=== PATIENT | female | born 1980 | race Hispanic/Latino ===

== ENCOUNTER → 2018-03-29 10:45 | Outpatient (CLI) | payer MEDICARE, SELFPAY ==
--- NOTE | 2018-04-12 11:07 | P.HOLT.S_ITS ---
[facility] Report Referral & Results Date Patient Seen: 03/29/18 Requesting provider: Rylee Atkins Indication: Palpitations Duration of monitoring (days): 3 Diary information: There were 4 diary entries that were associated with sinus rhythm, and 8 triggered events also associated with sinus rhythm Data: Minimum heart rate identified was 65 beats per minute at 06:41 on March 31, 2018 Maximum heart rate identified was 161 beats per minute at 13:55 on March 30, 2018 Less than 1% of identified beats were either PACs or PVCs No other dysrhythmia identified Impression: Normal Holter monitor. No dysrhythmic source of symptoms of palpitations identified on this study.
== END ==
PROVIDERS: Family Provider Family Medicine; PCP Family Medicine; Visit Provider Family Medicine
DX: R00.2 Palpitations (principal)
CPT/HCPCS: 0296T; 0298T

== ENCOUNTER 2018-07-11 15:21 | Emergency (ER) | payer MEDICARE, SELFPAY ==
[2018-07-11 15:29] VITALS: BP 140/75; PULSE 88; RESP 18; TEMP 36.8; O2SAT 100; BMI 23.9
--- NOTE | 2018-07-11 15:55 | ED.NECK ---
HPI - Neck Pain/Injury General Chief Complaint: Neck Pain/Injury Stated Complaint: HEAD, NECK, JAW AND BACK PAIN Time Seen by Provider: 07/11/18 15:45 Source: patient Mode of arrival: ambulatory Limitations: no limitations History of Present Illness HPI Narrative: 37-year-old female here for evaluation of right-sided neck pain and fullness. She states that it started approximately 4 days ago. States that it started with right ear pain and a sore throat. Those have since resolved. Has not tried anything for it. Four years ago had a Arnold-Chiari malformation decompression. States she does have fullness when she turns her neck to the right. Related Data Home Medications Medication Instructions Recorded Confirmed multivitamin chewable tablet 1 tab PO DAILY 05/16/18 07/11/18 propranolol 10 mg PO TID-QID 07/11/18 07/11/18 sumatriptan succinate [Imitrex] 50 mg PO Q2HP PRN 07/11/18 07/11/18 Previous Rx's Medication Instructions Recorded ascorbic acid (vitamin C) 500 mg PO QDAY #60 tab 03/08/17 ferrous sulfate [Iron (ferrous 325 mg PO BID #60 tab 03/08/17 sulfate)] amitriptyline 20 mg PO HS #60 tab 11/21/17 tramadol 50 mg tablet 50 mg PO Q4HP PRN #60 tab 05/10/18 Allergies Allergy/AdvReac Type Severity Reaction Status Date / Time baclofen [BACLOFEN] AdvReac Mild ANXIETY Verified 07/11/18 15:29 AND SLUGGISHNESS Review of Systems Constitutional Denies fever(s) and Denies headache(s) ENT Ears, Nose, Mouth, and Throat: Denies dizziness, Denies dry mouth, Denies ear discharge, Denies headache(s), Reports neck mass, Reports neck pain, Denies nose pain, Denies tinnitus, Denies sinus pain, Denies sinus pressure, Reports sore throat and Reports throat swelling Cardiovascular Denies chest pain and Denies dyspnea Respiratory Denies cough and Denies dyspnea Gastrointestinal Gastrointestinal: Denies abdominal pain, Denies belching, Denies melena, Denies nausea and Denies vomiting Musculoskeletal Denies myalgias, Denies arthralgias and Reports neck pain Integumentary/Breasts Denies lesions and Denies rash Neurologic Denies dizziness and Denies headache(s) Allergic/Immunologic Reports throat swelling PFSH Medical History Chronic back pain (Chronic) Foot pain (Chronic) History of frequent headaches (Chronic) Migraines (Chronic) Shoulder pain (Chronic) Stroke (Chronic) Vertigo (Chronic) Abnormal Pap smear of cervix (Resolved) Painful menstrual periods (Resolved) Surgical History History of Chiari malformation (Resolved ~07/10/17) Anesthesia (Inactive) History of third molar tooth extraction Status post appendectomy Status post breast reduction (~2014) Family History Child Age: 14 Asthma Father Age: 56 Parkinsons AA (alcohol abuse) Mother Age: 57 Hepatitis B infection without delta agent without hepatic coma, unspecified chronicity Grandmother No problems noted. Social History Smoking Status: Never smoker Exam Initial Vital Signs Initial Vital Signs: Vital Signs Temperature 98.2 F 07/11/18 15:29 Pulse Rate 88 07/11/18 15:29 Respiratory Rate 18 07/11/18 15:29 Blood Pressure 140/75 H 07/11/18 15:29 Pulse Oximetry 100 07/11/18 15:29 Const General: cooperative, healthy appearing, comfortable, well developed, well groomed and No acute distress Orientation: alert, awake and oriented x3 HENMT Head: normal to inspection and normocephalic Neck Neck: no meningeal signs and trachea midline Thyroid: thyroid normal Other: Patient with fullness in the right-sided anterior cervical region that is tender to palpation. No supraclavicular tenderness. No right adnexal fullness or lymph nodes felt. Resp Effort & Inspection: normal respiratory effort Auscultation: clear to auscultation bilaterally Cardio Rate: regular rate Rhythm: regular rhythm Skin General: no rashes or lesions noted Lesions: no lesions Rashes: no rashes Neuro General: alert, awake and oriented x3 Extrem General: normal to inspection and capillary refill normal Psych Appearance: grossly normal and well kempt Course Orders Ordered: ED Orders 07/11/18 16:03 CT soft tissue neck w con Stat 07/11/18 16:20 Basic Metabolic Panel Stat Complete Blood Count AUTO DIFF Stat Test Serum,Qual Stat 07/11/18 16:50 CT head/brain wo con Stat Discontinued Medications Sodium Chloride (Normal Saline 0.9%) 1,000 mls @ 1,000 mls/hr IV BOLUS ONE Stop: 07/11/18 16:58 Last Admin: 07/11/18 16:31 Dose: 1,000 mls/hr Morphine Sulfate (Morphine) 4 mg IV NOW ONE Stop: 07/11/18 16:23 Last Admin: 07/11/18 16:31 Dose: 4 mg Vital Signs - 8 hr 07/11/18 15:29 07/11/18 17:10 Temperature 98.2 F Pulse Rate 88 97 H Respiratory Rate 18 18 Blood Pressure 140/75 H Blood Pressure [Left Arm] 112/69 Pulse Oximetry 100 99 MDM - Neck Pain/Injury Lab Data Attestation: I reviewed the patient's lab results. Result diagrams: 07/11/18 16:20 07/11/18 16:20 Lab Results 07/11/18 07/11/18 07/11/18 Range/Units 16:20 16:20 16:20 WBC 9.0 (4.5-11.0) X10^3/uL RBC 4.45 (4.0-5.2) X10^6/uL Hgb 12.2 (12.0-16.0) g/dL Hct 36.0 (36-46) % MCV 81.0 (80-100) fL MCH 27.3 (26-34) PG MCHC 33.7 (30-36) % RDW 13.7 (11.6-14.8) % Plt Count 338 (150-400) X10^3/uL Neut % (Auto) 61.6 (50-75) % Lymph % (Auto) 28.2 (25-40) % Dyer % (Auto) 7.9 (3-14) % Eos % (Auto) 1.7 L (2-4) % Baso % (Auto) 0.6 (0-2) % Neut # (Auto) 5500 (7340-5101) /uL Sodium 141 (137-145) mmol/L Potassium 4.3 (3.4-5.1) mmol/L Chloride 103 (98-107) mmol/L Carbon Dioxide 26 (22-32) mmol/L BUN 11 (7-17) mg/dL Creatinine 0.60 (0.52-1.04) mg/dL Estimated GFR > 60.0 (>60) mL/min BUN/Creatinine Ratio 18.3 (6-22) Glucose 98 (70-100) mg/dL Calcium 9.7 (8.4-10.2) mg/dL Serum , Qual Negative (Negative) Imaging Data CT scan - head: Radiologist's impression: [address] [address] [address] Scan Report Signed Patient: Julia Bucio RMR#: [id number] : 1980Acct:[id number] Age/Sex: 37 / FDate of Service: 07/11/18 Loc: ED Accession Number: [id number] Procedure: CT head/brain wo con Ordering Provider: Marques Kearney D.O. PROCEDURE: CT HEAD/BRAIN WO CON INDICATIONS: chiari malformation decomo 4 y ago clear drain f/ nose TECHNIQUE: Noncontrast 4.5 mm thick angled axial sections acquired from the foramen magnum to the vertex, with coronal and sagittal reformats. For radiation dose reduction, the following was used: automated exposure control, adjustment of mA and/or kV according to patient size. COMPARISON: [facility], , BRAIN WITHOUT CONTRAST, 11/08/2017, 15:23. FINDINGS: Image quality: Excellent. CSF spaces: Basal cisterns are patent. No extra-axial fluid collections. Ventricles are normal in size and shape. Chiari malformation noted posterior fossa, stable in appearance over time in this patient who has undergone prior suboccipital craniotomy. Brain: No midline shift. No intracranial masses or hemorrhage. Hale-white matter interface is normal. Skull and face: Calvarium and visualized facial bones are intact, without suspicious lesions. Sinuses: Visualized sinuses and mastoids are clear. IMPRESSION: Prior suboccipital craniotomy for Chiari malformation, previously documented. No change in appearance of the ventricles or procedural site. A source of new symptoms is not found. No mastoid air cell or sinus disease is identified. Dictated by: Cameron Stone M.D. on 07/11/2018 at 17:11 Approved by: Cameron Stone M.D. on 07/11/[address] neck: Radiologist's impression: PROCEDURE: CT SOFT TISSUE NECK W CON INDICATIONS: R side swelling TECHNIQUE: After the administration of intravenous contrast, 3.0 mm axial sections acquired from the sella to the aortic arch. Additional oblique axial 3.0 mm sections acquired through the pharynx. 3 mm thick coronal and sagittal reformats were generated. For radiation dose reduction, the following was used: automated exposure control. COMPARISON: None. FINDINGS: Image quality: Excellent. Lymph nodes: No enlarged lymph nodes seen throughout the neck. Prominent bilateral level I and level II neck lymph nodes are noted which do not meet pathologic size criteria. Vessels: Visualized vasculature appears patent. Neck spaces: The oropharynx, nasopharynx, and pharynx demonstrate no mucosal lesions. The vocal cords, false vocal cords, pyriform sinuses, epiglottis, vallecula, and tongue base all appear normal. Extramucosal spaces appear unremarkable. Glands: The parotid and submandibular glands appear normal. Thyroid gland is normal. Miscellaneous: Visualized brain and orbits appear normal. Lung apices appear clear. Superficial soft tissues appear normal. Bones: Postsurgical changes compatible with suboccipital craniectomy. Visualized sinuses and mastoids appear unremarkable. IMPRESSION: 1. No abscess. 2. No lymphadenopathy based on size criteria. 3. No mucosal based masses. 3. Postsurgical changes compatible with suboccipital craniectomy. Dictated by: Cheri Mckenna MD, PhD on 07/11/2018 at 17:26 Approved by: Cheri Mckenna MD, PhD on 07/11/2018 at 17:29 [facility] Narrative Medical decision making narrative: Patient's CT scan of the head shows no acute pathology. No pathologic lymph nodes noted however does have small lymphadenopathy which does fit her presenting symptoms. Doubt abscess. No signs of abscess. While we are waiting for the labs to return prior to the head CT patient informed nursing staff that over the past several years she has occasionally had clear fluid drainage from her right year and also from her nose. She is not currently having those symptoms. Is not having any fevers. She states that does not happen all that often. Has not mentioned this to her neurologist or her primary doctor. Head is why I ordered a head CT today. Was unable to obtain any samples for testing today. There is a small concerned that this may be CSF however head CT shows no fractures in the rest of her exam is unremarkable. Her right ear shows no signs of tympanic membrane perforation which makes the etiology of the fluid from her right ear uncertain. I informed the patient that she does need to contact her primary doctor and also her neurologist regarding this for further evaluation. No need for antibiotics today. We did discuss nonsteroidal anti-inflammatories. Patient expressed understanding and agreement with plan. Discharge Plan Departure Patient Disposition: Home Clinical Impression: Adenopathy, cervical Instructions: DI for Lymphadenopathy Activity Restrictions/Additional Instructions: Recommend that you keep your appointment with her primary doctor at the end of this month. You can take nonsteroidal anti-inflammatories for any pain in the neck. Warm compresses also was needed. Return to the emergency department for any new or worsening symptoms. Prescriptions: No Action ascorbic acid (vitamin C) 500 MG tablet 500 mg PO QDAY Qty: 60 RF: 3 ferrous sulfate [Iron (ferrous sulfate)] 325 MG tablet 325 mg PO BID Qty: 60 RF: 2 amitriptyline 10 MG tablet 20 mg PO HS Qty: 60 RF: 11 tramadol 50 mg tablet 50 mg PO Q4HP PRN (Reason: pain) Qty: 60 RF: 1 multivitamin tablet,chewable 1 tab PO DAILY RF: 0 sumatriptan succinate [Imitrex] 50 MG tablet 50 mg PO Q2HP PRN (Reason: Migraine Headache) RF: 0 propranolol 10 mg tablet 10 mg PO TID-QID RF: 0
--- NOTE | 2018-07-11 16:03 | DI.CT.S_ITS ---
PROCEDURE: CT SOFT TISSUE NECK W CON INDICATIONS: R side swelling TECHNIQUE: After the administration of intravenous contrast, 3.0 mm axial sections acquired from the sella to the aortic arch. Additional oblique axial 3.0 mm sections acquired through the pharynx. 3 mm thick coronal and sagittal reformats were generated. For radiation dose reduction, the following was used: automated exposure control. COMPARISON: None. FINDINGS: Image quality: Excellent. Lymph nodes: No enlarged lymph nodes seen throughout the neck. Prominent bilateral level I and level II neck lymph nodes are noted which do not meet pathologic size criteria. Vessels: Visualized vasculature appears patent. Neck spaces: The oropharynx, nasopharynx, and pharynx demonstrate no mucosal lesions. The vocal cords, false vocal cords, pyriform sinuses, epiglottis, vallecula, and tongue base all appear normal. Extramucosal spaces appear unremarkable. Glands: The parotid and submandibular glands appear normal. Thyroid gland is normal. Miscellaneous: Visualized brain and orbits appear normal. Lung apices appear clear. Superficial soft tissues appear normal. Bones: Postsurgical changes compatible with suboccipital craniectomy. Visualized sinuses and mastoids appear unremarkable. IMPRESSION: 1. No abscess. 2. No lymphadenopathy based on size criteria. 3. No mucosal based masses. 3. Postsurgical changes compatible with suboccipital craniectomy. Dictated by: Cheri Mckenna MD, PhD on 07/11/2018 at 17:26 Approved by: Cheri Mckenna MD, PhD on 07/11/2018 at 17:29
[2018-07-11 16:30] LABS: Add Manual Diff / Slide Review NO; Basophils Percent Auto 0.6 % (0-2); Eosinophils Percent Auto 1.7 % (2-4); Hemoglobin 12.2 g/dL (12.0-16.0); Lymphocytes Percent Auto 28.2 % (25-40); Mean Corpuscular HGB Conc 33.7 % (30-36); Mean Corpuscular Hemoglobin 27.3 PG (26-34); Monocytes Percent Auto 7.9 % (3-14); Neutrophils Absolute Auto 5500 /uL (3000-5900); Neutrophils Percent Auto 61.6 % (50-75); Platelet Count 338 X10^3/uL (150-400); Red Blood Cell Count 4.45 X10^6/uL (4.0-5.2); Red Cell Distribution Width 13.7 % (11.6-14.8)
[2018-07-11] MEDS: SODIUM CHLORIDE 0.9% 1,000 ML 1000 ML IV (16:31)
[2018-07-11] MEDS: MORPHINE 4 MG/ML INJ IV (16:31)
[2018-07-11 16:43] LABS: BUN Creatinine Ratio 18.3 (6-22); Blood Urea Nitrogen 11 mg/dL (7-17); Calcium 9.7 mg/dL (8.4-10.2); Carbon Dioxide 26 mmol/L (22-32); Chloride 103 mmol/L (98-107); Estimated Glomerular Filt Rate > 60.0 mL/min (>60); Glucose 98 mg/dL (70-100); HEMOLYSIS < 15 (0-50); Potassium 4.3 mmol/L (3.4-5.1); Sodium 141 mmol/L (137-145)
[2018-07-11 16:49] LABS: Pregnancy Test Serum,Qual Negative (Negative)
--- NOTE | 2018-07-11 16:50 | DI.CT.S_ITS ---
PROCEDURE: CT HEAD/BRAIN WO CON INDICATIONS: chiari malformation decomo 4 y ago clear drain f/ nose TECHNIQUE: Noncontrast 4.5 mm thick angled axial sections acquired from the foramen magnum to the vertex, with coronal and sagittal reformats. For radiation dose reduction, the following was used: automated exposure control, adjustment of mA and/or kV according to patient size. COMPARISON: [facility], , BRAIN WITHOUT CONTRAST, 11/08/2017, 15:23. FINDINGS: Image quality: Excellent. CSF spaces: Basal cisterns are patent. No extra-axial fluid collections. Ventricles are normal in size and shape. Chiari malformation noted posterior fossa, stable in appearance over time in this patient who has undergone prior suboccipital craniotomy. Brain: No midline shift. No intracranial masses or hemorrhage. Hale-white matter interface is normal. Skull and face: Calvarium and visualized facial bones are intact, without suspicious lesions. Sinuses: Visualized sinuses and mastoids are clear. IMPRESSION: Prior suboccipital craniotomy for Chiari malformation, previously documented. No change in appearance of the ventricles or procedural site. A source of new symptoms is not found. No mastoid air cell or sinus disease is identified. Dictated by: Cameron Stone M.D. on 07/11/2018 at 17:11 Approved by: Cameron Stone M.D. on 07/11/2018 at 17:12
--- NOTE | 2018-07-11 17:04 | PC.NURSE ---
Pt states she frequently has clear fluid leaking from nose and right ear. Provider notified. Order for head CT obtained.
[2018-07-11 17:10] VITALS: BP 112/69; PULSE 97; RESP 18; O2SAT 99
== END 2018-07-11 18:14 | disposition home or self-care (01) ==
PROVIDERS: Emergency Provider Emergency Medicine; Family Provider Family Medicine; PCP Family Medicine
DX: R59.0 Localized enlarged lymph nodes (principal)
CPT/HCPCS: 36591; 70450; 70491; 80048; 81003; 81025; 84703; 85025; 96361; 96374; 99282; 99285; J2270; Q9967

== ENCOUNTER → 2019-04-01 10:09 | Outpatient (CLI) | payer MEDICARE, MEDICAID, SELFPAY ==
[2019-04-01 10:56] LABS: Add Manual Diff / Slide Review NO; Basophils Absolute Auto 0 /uL (0-100); Basophils Percent Auto 0.2 % (0-2); Eosinophils Absolute Auto 100 /uL (0-450); Eosinophils Percent Auto 1.5 % (2-4); Hematocrit 34.4 % (36-46); Hemoglobin 11.3 g/dL (12.0-16.0); Lymphocytes Absolute Auto 2500 /uL (1100-4500); Lymphocytes Percent Auto 27.6 % (25-40); Mean Corpuscular HGB Conc 32.8 % (30-36); Mean Corpuscular Hemoglobin 26.6 PG (26-34); Mean Corpuscular Volume 81.3 fL (80-100); Monocytes Absolute Auto 800 /uL (0-900); Monocytes Percent Auto 9.4 % (3-14); Neutrophils Absolute Auto 5500 /uL (1500-7000); Neutrophils Percent Auto 61.3 % (50-75); Platelet Count 362 X10^3/uL (150-400); Red Blood Cell Count 4.24 X10^6/uL (4.0-5.2); Red Cell Distribution Width 13.3 % (11.6-14.8)
[2019-04-01 14:59] LABS: Iron 49 ug/dL (37-170)
[2019-04-01 15:35] LABS: Ferritin 5.1 ng/mL (6.27-137)
== END ==
PROVIDERS: Family Provider Family Medicine; PCP Family Medicine; Visit Provider Family Medicine
DX: D50.8 Other iron deficiency anemias (principal); D50.9 Iron deficiency anemia, unspecified
CPT/HCPCS: 36415; 82728; 83540; 85025

== ENCOUNTER → 2019-05-17 13:58 | Outpatient (CLI) | payer MEDICARE, MEDICAID, SELFPAY ==
[2019-05-17 14:55] LABS: Add Manual Diff / Slide Review NO; Basophils Absolute Auto 0 /uL (0-100); Basophils Percent Auto 0.4 % (0-2); Eosinophils Absolute Auto 100 /uL (0-450); Eosinophils Percent Auto 1.1 % (2-4); Hematocrit 36.2 % (36-46); Lymphocytes Absolute Auto 2700 /uL (1100-4500); Lymphocytes Percent Auto 33.4 % (25-40); Mean Corpuscular Hemoglobin 27.7 PG (26-34); Mean Corpuscular Volume 84.1 fL (80-100); Monocytes Absolute Auto 600 /uL (0-900); Neutrophils Absolute Auto 4500 /uL (1500-7000); Neutrophils Percent Auto 57.1 % (50-75); Platelet Count 306 X10^3/uL (150-400); Red Blood Cell Count 4.31 X10^6/uL (4.0-5.2); Red Cell Distribution Width 15.5 % (11.6-14.8)
[2019-05-17 16:01] LABS: HEMOLYSIS < 15 (0-50); Iron 76 ug/dL (37-170)
[2019-05-17 16:11] LABS: Percent Iron Saturation 25 % (15-50); Total Iron Binding Capacity 308 ug/dL (265-497)
[2019-05-17 16:48] LABS: Transferrin 257 mg/dL (206-381)
== END ==
PROVIDERS: PCP Family Medicine; Visit Provider Family Medicine
DX: D50.9 Iron deficiency anemia, unspecified (principal)
CPT/HCPCS: 36415; 82728; 83540; 83550; 85025

== ENCOUNTER → 2019-10-03 17:33 | Outpatient (CLI) | payer MEDICARE, MEDICAID, SELFPAY ==
--- NOTE | 2019-10-03 17:35 | DI.MG.S_ITS ---
BILATERAL DIGITAL SCREENING MAMMOGRAM 3D/2D WITH CAD: 10/03/2019 CLINICAL: Routine screening. Family history of breast cancer. Comparison is made to exams dated: 03/21/2017 mammogram - [facility], 11/26/2015 mammogram - [facility], and 12/30/2014 mammogram - [facility]. The tissue of both breasts is extremely dense, which lowers the sensitivity of mammography. Current study was also evaluated with a Computer Aided Detection (CAD) system. There are benign calcifications in both breasts. No significant masses, calcifications, or other findings are seen in either breast. There has been no significant interval change. IMPRESSION: There is no mammographic evidence of malignancy. A 3 year screening mammogram is recommended. This exam was interpreted at Station ID: [id number]. NOTE: For mammograms, a report in lay terms will be sent to the patient. Approximately 15% of breast malignancies will not be visualized mammographically. In the management of a palpable breast mass, a negative mammogram must not discourage biopsy of a clinically suspicious lesion. Electronically Signed By: Vince burgess/lina:10/04/2019 07:40:08 letter sent: Normal Exam ACR BI-RADS Category 2: Benign Finding(s) 3342F
== END ==
PROVIDERS: PCP Family Medicine; Visit Provider Family Medicine
DX: Z12.31 Encounter for screening mammogram for malignant neoplasm of breast (principal); Z80.3 Family history of malignant neoplasm of breast
CPT/HCPCS: 77063; 77067

== ENCOUNTER → 2019-10-07 13:53 | Outpatient (CLI) | payer MEDICARE, MEDICAID, SELFPAY ==
[2019-10-07 15:20] LABS: C-Reactive Protein Quant 0.6 mg/dL (<1.0)
[2019-10-07 15:24] LABS: Rheumatoid Factor < 8.6 IU/mL (<12.0)
[2019-10-07 15:34] LABS: Erythrocyte Sedimentation Rate 8 MM/HR (0-20)
[2019-10-10 09:28] LABS: CCP Antibodies IgG/IgA 7
== END ==
PROVIDERS: PCP Family Medicine; Visit Provider Family Medicine
DX: M62.838 Other muscle spasm (principal)
CPT/HCPCS: 36415; 85651; 86038; 86140; 86200; 86430

== ENCOUNTER → 2020-01-14 12:02 | Outpatient (CLI) | payer MEDICARE, MEDICAID, SELFPAY ==
[2020-01-14 12:54] LABS: Add Manual Diff / Slide Review NO; Basophils Absolute Auto 0 /uL (0-100); Basophils Percent Auto 0.5 % (0-2); Eosinophils Absolute Auto 200 /uL (0-450); Eosinophils Percent Auto 1.9 % (2-4); Hematocrit 35.8 % (36-46); Hemoglobin 11.8 g/dL (12.0-16.0); Lymphocytes Absolute Auto 2400 /uL (1100-4500); Lymphocytes Percent Auto 28.9 % (25-40); Mean Corpuscular HGB Conc 32.9 % (30-36); Mean Corpuscular Hemoglobin 27.7 PG (26-34); Mean Corpuscular Volume 84.4 fL (80-100); Monocytes Absolute Auto 600 /uL (0-900); Monocytes Percent Auto 6.7 % (3-14); Neutrophils Absolute Auto 5100 /uL (1500-7000); Platelet Count 394 X10^3/uL (150-400); Red Blood Cell Count 4.24 X10^6/uL (4.0-5.2); Red Cell Distribution Width 12.7 % (11.6-14.8); White Blood Cell Count 8.2 X10^3/uL (4.5-11.0)
[2020-01-14 13:24] LABS: Erythrocyte Sedimentation Rate 14 MM/HR (0-20)
[2020-01-14 13:45] LABS: HEMOLYSIS < 15 (0-50); Iron 73 ug/dL (37-170)
[2020-01-14 13:51] LABS: C-Reactive Protein Quant < 0.5 mg/dL (<1.0); Rheumatoid Factor < 8.6 IU/mL (<12.0)
[2020-01-14 13:56] LABS: Percent Iron Saturation 19 % (15-50); Total Iron Binding Capacity 378 ug/dL (265-497); Transferrin 321 mg/dL (206-381)
[2020-01-14 14:20] LABS: Ferritin 9 ng/mL (6-137)
[2020-01-16 12:17] LABS: CCP Antibody (IgG) < 16 Units (< 20)
== END ==
PROVIDERS: PCP Family Medicine; Referring Provider Family Medicine; Visit Provider Family Medicine
DX: M62.838 Other muscle spasm (principal); D50.9 Iron deficiency anemia, unspecified
CPT/HCPCS: 36415; 82728; 83540; 83550; 85025; 85651; 86038; 86140; 86200; 86430

== ENCOUNTER → 2021-03-11 13:39 | Outpatient (CLI) | payer MEDICARE, MEDICAID, SELFPAY ==
[2021-03-11] MEDS: COVID-19 VACC #1, MRNA(MOD) 100 MCG/0.5 ML VIAL IM (13:50)
== END ==
PROVIDERS: PCP Family Medicine; Visit Provider Internal Medicine
DX: Z23 Encounter for immunization (principal)
CPT/HCPCS: 0011A; 91301

== ENCOUNTER → 2021-04-08 13:17 | Outpatient (CLI) | payer MEDICARE, MEDICAID, SELFPAY ==
[2021-04-08] MEDS: COVID-19 VACC #2, MRNA(MOD) 100 MCG/0.5 ML VIAL IM (13:23)
== END ==
PROVIDERS: PCP Family Medicine; Visit Provider Internal Medicine
DX: Z23 Encounter for immunization (principal)
CPT/HCPCS: 0012A; 91301

== ENCOUNTER → 2021-09-02 12:42 | Outpatient (CLI) | payer MEDICARE, SELFPAY ==
[2021-09-02 13:12] LABS: Add Manual Diff / Slide Review NO; Basophils Absolute Auto 0 /uL (0-100); Basophils Percent Auto 0.3 % (0-2); Eosinophils Absolute Auto 100 /uL (0-450); Eosinophils Percent Auto 1.3 % (2-4); Hematocrit 27.6 % (36-46); Hemoglobin 8.2 g/dL (12.0-16.0); Lymphocytes Absolute Auto 2000 /uL (1100-4500); Lymphocytes Percent Auto 25.7 % (25-40); Mean Corpuscular HGB Conc 29.9 % (30-36); Mean Corpuscular Hemoglobin 19.6 PG (26-34); Mean Corpuscular Volume 65.6 fL (80-100); Monocytes Absolute Auto 600 /uL (0-900); Monocytes Percent Auto 7.9 % (3-14); Neutrophils Absolute Auto 5100 /uL (1500-7000); Neutrophils Percent Auto 64.8 % (50-75); Platelet Count 391 X10^3/uL (150-400); Red Cell Distribution Width 18.4 % (11.6-14.8); White Blood Cell Count 7.9 X10^3/uL (4.5-11.0)
[2021-09-02 13:24] LABS: Alanine Aminotransferase 12 IU/L (<35); Albumin 4.3 g/dL (3.5-5.0); Albumin Globulin Ratio 1.5 (1.0-2.8); Alkaline Phosphatase 63 U/L (38-126); Aspartate Aminotransferase 19 IU/L (14-36); BUN Creatinine Ratio 13.3 (6-22); Bilirubin Total 0.5 mg/dL (0.2-1.3); Blood Urea Nitrogen 10 mg/dL (7-17); Calcium 9.4 mg/dL (8.4-10.2); Carbon Dioxide 25 mmol/L (22-32); Chloride 104 mmol/L (98-107); Estimated Glomerular Filt Rate > 60.0 mL/min (>60); Globulin 2.9 g/dL (1.7-4.1); Glucose 109 mg/dL (70-100); HEMOLYSIS < 15 (0-50); Potassium 3.7 mmol/L (3.4-5.1); Sodium 138 mmol/L (137-145); Total Protein 7.2 g/dL (6.3-8.2)
[2021-09-02 13:43] LABS: Anisocytosis 2+
== END ==
PROVIDERS: PCP Family Medicine; Referring Provider Family Medicine; Visit Provider Family Medicine
DX: D50.9 Iron deficiency anemia, unspecified (principal); N92.0 Excessive and frequent menstruation with regular cycle; R13.10 Dysphagia, unspecified
CPT/HCPCS: 36415; 80053; 85025

== ENCOUNTER → 2021-11-04 08:41 | Outpatient (CLI) | payer MEDICARE, SELFPAY ==
--- NOTE | 2021-11-04 08:45 | DI.US.S_ITS ---
PROCEDURE: US PELVIC COMPLETE INDICATIONS: ANEMIA; HEAVY PERIODS TECHNIQUE: Real-time scanning was performed of the pelvic organs, with image documentation. Additional endovaginal scanning was necessary due to incomplete visualization of the adnexal and endometrial structures by transabdominal scanning. COMPARISON: None. FINDINGS: Uterus: Uterus is anteverted and normal in size at 9.8 x 6.2 x 10.9 cm. The myometrium is homogeneous. The endometrium measures 6.6 mm combined thickness. Multiple fibroids are identified. A right posterior intramural fibroid measures 3.9 x 3.0 x 3.9 cm. A left anterior/posterior subserosal fibroid measures 5.8 x 6.2 x 5.0 cm. The cervix is within normal limits. Ovaries: The ovaries are not visualized. Other: No adnexal fluid or adnexal mass identified. IMPRESSION: Fibroid uterus. We strive to produce accurate, complete, and clear reports of imaging services. To assist us in improving patient care, this report was composed using standard report templates and voice recognition software. Therefore, it may contain abnormal punctuation, insertions and/or omissions. Occasional wrong-word or sound-alike substitutions may occur. Though we review the report and make efforts to correct it, we do recommend that the report be read carefully in proper context to recognize any text inaccuracies. Dictated by: Shamir Nazario M.D. on 11/04/2021 at 12:24 Approved by: Shamir Nazario M.D. on 11/04/2021 at 12:33
== END ==
PROVIDERS: PCP Family Medicine; Referring Provider Family Medicine; Visit Provider Family Medicine
DX: D50.0 Iron deficiency anemia secondary to blood loss (chronic) (principal); N92.0 Excessive and frequent menstruation with regular cycle; D25.1 Intramural leiomyoma of uterus; D25.2 Subserosal leiomyoma of uterus
CPT/HCPCS: 76830; 76856

== ENCOUNTER → 2022-01-05 09:51 | Outpatient (CLI) | payer MEDICARE, MEDICAID, SELFPAY ==
[2022-01-05 11:36] LABS: Add Manual Diff / Slide Review NO; Basophils Absolute Auto 0 /uL (0-100); Basophils Percent Auto 0.3 % (0-2); Eosinophils Absolute Auto 100 /uL (0-450); Eosinophils Percent Auto 1.5 % (2-4); Hematocrit 34.1 % (36-46); Hemoglobin 11.6 g/dL (12.0-16.0); Lymphocytes Absolute Auto 2300 /uL (1100-4500); Lymphocytes Percent Auto 26.5 % (25-40); Mean Corpuscular Hemoglobin 27.4 PG (26-34); Mean Corpuscular Volume 80.5 fL (80-100); Monocytes Absolute Auto 700 /uL (0-900); Monocytes Percent Auto 7.9 % (3-14); Neutrophils Absolute Auto 5400 /uL (1500-7000); Neutrophils Percent Auto 63.8 % (50-75); Platelet Count 287 X10^3/uL (150-400); Red Blood Cell Count 4.24 X10^6/uL (4.0-5.2); Red Cell Distribution Width 20.9 % (11.6-14.8); White Blood Cell Count 8.5 X10^3/uL (4.5-11.0)
[2022-01-05 11:58] LABS: Anisocytosis 2+
[2022-01-05 12:00] LABS: Poikilocytosis 1+
[2022-01-05 12:05] LABS: HEMOLYSIS < 15 (0-50); Iron 75 ug/dL (37-170)
[2022-01-05 12:18] LABS: Alanine Aminotransferase 12 IU/L (<35); Albumin 4.3 g/dL (3.5-5.0); Albumin Globulin Ratio 1.7 (1.0-2.8); Alkaline Phosphatase 58 U/L (38-126); Aspartate Aminotransferase 18 IU/L (14-36); BUN Creatinine Ratio 12.5 (6-22); Bilirubin Total 0.5 mg/dL (0.2-1.3); Blood Urea Nitrogen 8 mg/dL (7-17); Calcium 9.4 mg/dL (8.4-10.2); Carbon Dioxide 23 mmol/L (22-32); Chloride 107 mmol/L (98-107); Cholesterol 195 mg/dL (140-199); Estimated Glomerular Filt Rate > 60.0 mL/min (>60); Globulin 2.6 g/dL (1.7-4.1); Glucose 118 mg/dL (70-100); HDL Cholesterol 42 mg/dL (40-60); HEMOLYSIS < 15 (0-50); LDL Cholesterol Calculated 110 mg/dL (<100); Percent Iron Saturation 23 % (15-50); Sodium 138 mmol/L (137-145); Total Iron Binding Capacity 327 ug/dL (265-497); Total Protein 6.9 g/dL (6.3-8.2); Transferrin 257 mg/dL (206-381); Triglycerides 217 mg/dL (35-150)
[2022-01-05 12:45] LABS: Ferritin 104 ng/mL (6-137)
== END ==
PROVIDERS: PCP Family Medicine; Referring Provider Family Medicine; Visit Provider Family Medicine
DX: D50.0 Iron deficiency anemia secondary to blood loss (chronic) (principal); N92.0 Excessive and frequent menstruation with regular cycle; E66.3 Overweight
CPT/HCPCS: 36415; 80053; 80061; 82728; 83540; 83550; 85025

== ENCOUNTER → 2022-01-18 10:15 | Outpatient (CLI) | payer MEDICARE, MEDICAID, SELFPAY ==
--- NOTE | 2022-01-18 | DI.MG.S_ITS ---
BILATERAL DIGITAL SCREENING MAMMOGRAM 3D/2D WITH CAD: 01/18/2022 CLINICAL: Routine screening. Comparison is made to exams dated: 10/03/2019 mammogram, 03/21/2017 mammogram - [facility], and 11/26/2015 mammogram - [facility]. The tissue of both breasts is extremely dense, which lowers the sensitivity of mammography. Current study was also evaluated with a Computer Aided Detection (CAD) system. There are benign calcifications in both breasts. There also are benign post operative findings in both breasts. No significant masses, calcifications, or other findings are seen in either breast. There has been no significant interval change. IMPRESSION: BENIGN There is no mammographic evidence of malignancy. A 1 year screening mammogram is recommended. This exam was interpreted at Station ID: [id number]. NOTE: For mammograms, a report in lay terms will be sent to the patient. Approximately 15% of breast malignancies will not be visualized mammographically. In the management of a palpable breast mass, a negative mammogram must not discourage biopsy of a clinically suspicious lesion. Electronically Signed By: Avila meza/lina:01/18/2022 12:36:51 letter sent: Normal Exam ACR BI-RADS Category 2: Benign Finding(s) 3342F
== END ==
PROVIDERS: PCP Family Medicine; Referring Provider Family Medicine; Visit Provider Family Medicine
DX: Z12.31 Encounter for screening mammogram for malignant neoplasm of breast (principal)
CPT/HCPCS: 77063; 77067

== ENCOUNTER 2022-06-23 15:07 | Emergency (ER) | payer MEDICARE, MEDICAID, SELFPAY ==
[2022-06-23] VITALS (19 sets, daily range): BP systolic 113–140; BP diastolic 66–80; PULSE 79–97; RESP 10–34; TEMP 37.1; O2SAT 97–100; BMI 27.4
--- NOTE | 2022-06-23 15:35 | DI.CT.S_ITS ---
PROCEDURE: CT HEAD/BRAIN WO CON INDICATIONS: weakness, dizziness TECHNIQUE: Noncontrast 4.5 mm thick angled axial sections acquired from the foramen magnum to the vertex, with coronal and sagittal reformats. For radiation dose reduction, the following was used: automated exposure control, adjustment of mA and/or kV according to patient size. COMPARISON: None. FINDINGS: Image quality: Excellent. CSF spaces: Basal cisterns are patent. No extra-axial fluid collections. Ventricles are normal in size and shape. Brain: No midline shift. No intracranial masses or hemorrhage. Hale-white matter interface is normal. Skull and face: Calvarium and visualized facial bones are intact, without suspicious lesions. Sinuses: Visualized sinuses and mastoids are clear. IMPRESSION: No acute intracranial abnormality. Dictated by: Keith Florence M.D. on 06/23/2022 at 16:16 Approved by: Keith Florence M.D. on 06/23/2022 at 16:17
--- NOTE | 2022-06-23 15:47 | PC.NURSE ---
Pt had syncopal episode in chair after getting PIV placed. Pt moved to room 1. updated.
--- NOTE | 2022-06-23 16:00 | DI.RAD.S_ITS ---
PROCEDURE: XR CHEST 1V INDICATIONS: leg weakness, trouble walking, hx arnold chiari, syncope TECHNIQUE: One view of the chest was acquired. COMPARISON: [facility], , CHEST 2 VIEW, 03/14/2018, 23:25. FINDINGS: Surgical changes and devices: None. Lungs and pleura: Lungs are clear. No pleural effusions or pneumothorax. Mediastinum: Mediastinal contours appear normal. Heart size is normal. Bones and chest wall: No suspicious bony lesions. Overlying soft tissues appear unremarkable. IMPRESSION: No acute cardiopulmonary pathology. Dictated by: Tyrel Cook M.D. on 06/23/2022 at 15:34 Approved by: Tyrel Cook M.D. on 06/23/2022 at 15:34
[2022-06-23 16:10] LABS: INR 1.1 (0.9-1.3); Prothrombin Time 11.9 SECONDS (10.1-12.7)
[2022-06-23 16:12] LABS: PTT Partial Thromboplastin Tim 38 SECONDS (26.4-36.2)
[2022-06-23 16:16] LABS: Add Manual Diff / Slide Review NO; Alanine Aminotransferase 14 IU/L (<35); Albumin 4.7 g/dL (3.5-5.0); Albumin Globulin Ratio 1.4 (1.0-2.8); Alkaline Phosphatase 73 U/L (38-126); Aspartate Aminotransferase 20 IU/L (14-36); BUN Creatinine Ratio 12.9 (6-22); Basophils Absolute Auto 100 /uL (0-100); Basophils Percent Auto 0.8 % (0-2); Bilirubin Total 0.5 mg/dL (0.2-1.3); Blood Urea Nitrogen 9 mg/dL (7-17); Calcium 9.2 mg/dL (8.4-10.2); Carbon Dioxide 23 mmol/L (22-32); Chloride 105 mmol/L (98-107); Creatine Kinase 73 U/L (30-135); Eosinophils Absolute Auto 100 /uL (0-450); Eosinophils Percent Auto 0.8 % (2-4); Estimated Glomerular Filt Rate > 60 mL/min (>60); Globulin 3.4 g/dL (1.7-4.1); Glucose 106 mg/dL (70-100); HEMOLYSIS < 15 (0-50); Hematocrit 37.2 % (36-46); Hemoglobin 12.6 g/dL (12.0-16.0); Lymphocytes Absolute Auto 2100 /uL (1100-4500); Lymphocytes Percent Auto 26.2 % (25-40); Mean Corpuscular HGB Conc 33.8 % (30-36); Mean Corpuscular Volume 82.9 fL (80-100); Monocytes Absolute Auto 600 /uL (0-900); Monocytes Percent Auto 7.7 % (3-14); Neutrophils Absolute Auto 5200 /uL (1500-7000); Neutrophils Percent Auto 64.5 % (50-75); Platelet Count 329 X10^3/uL (150-400); Potassium 3.8 mmol/L (3.4-5.1); Red Blood Cell Count 4.49 X10^6/uL (4.0-5.2); Red Cell Distribution Width 13.1 % (11.6-14.8); Sodium 139 mmol/L (137-145); Total Protein 8.1 g/dL (6.3-8.2)
[2022-06-23 16:29] LABS: NT-proBNP (BNP-Adult 18+) 185 pg/mL (<125); Troponin I < 0.012 ng/mL (0.01-0.034)
[2022-06-23] MEDS: SODIUM CHLORIDE 0.9% 1,000 ML 1000 ML IV (16:30)
[2022-06-23 16:36] LABS: D Dimer < 200 ng/mL (<230)
[2022-06-23 17:23] LABS: Bacteria Urine Occasional (0-1); Culture Indicated Urine Cult Not Indicated; RBC Urine 5-10/HPF (0-5/HPF); Squamous Epithelial Cell Urine 1-5 /HPF (0-5/HPF); Transitional Epi Cells Urine 0-1/HPF (0-5/HPF); WBC Urine 0-1/HPF (0-5/HPF)
[2022-06-23 17:47] LABS: COVID19 -Nasal RAPID Negative (Negative)
--- NOTE | 2022-06-23 18:04 | ED_ITS ---
HPI - Neuro Symptoms/Deficit <Nino Montgomery DO - Last Filed: 06/25/22 02:43> General Chief Complaint: Neuro Symptoms/Deficit Stated Complaint: legs keep giving out, can't walk Time Seen by Provider: 06/23/22 15:59 Source: patient Mode of arrival: Wheelchair History of Present Illness HPI Narrative: 41-year-old female nonsmoker with history of Arnold-Chiari malformation repaired in 2013 in [place] presents with family in the chief complaint of increasing bilateral lower extremity weakness over the past few days. She states that she has always had trouble with neck pain and the occasional tingling of her extr emities but historically does not have any weakness or issues with her legs giving out. This has been happening over the past 2 days with minimal exertion. She denies any fever or chills. She denies any obvious issues controlling bowel or bladder but states that having a bowel movement results and tingling of her lower extremities and increased headache. She denies any blurred vision, trouble with speech or trouble swallowing. She has increasing dizziness and in fact had a fall a day or 2 ago without obvious injury. She denies any chest pain or shortness of breath. She denies any nausea, vomiting or diarrhea. On Anticoagulants: No Related Data Home Medications Medication Instructions Recorded Confirmed multivitamin 1 tab PO DAILY 05/16/18 01/11/22 Previous Rx's Medication Instructions Recorded cyclobenzaprine 5 mg tablet 5 mg PO TID PRN muscle spasm #30 01/22/21 tabs escitalopram oxalate 10 mg tablet 10 mg PO DAILY #90 tabs 01/26/22 amitriptyline 25 mg tablet See Rx Instructions .Route 05/24/22 .COMPLEX #90 tabs tramadol 50 mg tablet 50 mg PO TID PRN severe pain #60 06/13/22 tabs Allergies Allergy/AdvReac Type Severity Reaction Status Date / Time baclofen [BACLOFEN] AdvReac Mild ANXIETY Verified 01/11/22 16:11 AND SLUGGISHNESS Review of Systems <Nino Montgomery DO - Last Filed: 06/25/22 02:43> Review of Systems Narrative: GENERAL: Denies chills, fatigue, malaise, fever, sweats. HEENT: Denies sinus pain, ear pain, sore throat, difficulty swallowing, dizziness. RESPIRATORY: Denies dyspnea, cough, wheezing, hemoptysis, sputum. CARDIOVASCULAR: Denies chest pain, palpitations, orthopnea, edema, GASTROINTESTINAL: Denies nausea, vomiting, abdominal pain, diarrhea, constipation, melena. : Denies dysuria, frequency, incontinence, hematuria, urinary retention. MUSCULOSKELETAL: denies weakness, joint pain, or bony pain SKIN: Denies rash, skin lesions, or other NEUROLOGIC: See HPI PSYCHIATRIC: No concerning psychosocial issues. 12 point review of systems is negative except for those stated above Hematologic/Lymphatic On Anticoagulants: No Patient History <Nino Montgomery DO - Last Filed: 06/25/22 02:43> Medical History Arnold-Chiari malformation, type I (10/25/16) Cerebrospinal fluid leak Chronic back pain (~11/2014) Foot pain History of frequent headaches Migraines Painful menstrual periods Shoulder pain Stroke Vertigo Surgical History Anesthesia History of Chiari malformation (~07/10/14) History of third molar tooth extraction Status post appendectomy Status post breast reduction (~2014) Family History Child Age: 18 Asthma Father Age: 60 Parkinsons AA (alcohol abuse) Mother Age: 61 Hepatitis B infection without delta agent without hepatic coma, unspecified chronicity Grandmother No problems noted. Social History Smoking Status: Never smoker Smoking Status: Never smoker alcohol intake frequency: 0-2 drinks per day Substance Use Type: does not use Exam <Nino Montgomery DO - Last Filed: 06/25/22 02:43> Narrative Exam Narrative: GENERAL: [41] year old patient appears stated age. Well-developed patient, in mild distress. GCS 15 HEAD: Atraumatic. Normocephalic. EYES: Pupils equal round and reactive. Extraocular motions intact. No scleral icterus. No injection or drainage. ENT: Nose without bleeding, purulent drainage. Throat without erythema, tonsillar hypertrophy or exudate. Airway patent. NECK: Trachea midline. Non tender CARDIOVASCULAR: Regular rate and rhythm without murmurs, gallops, or rubs. RESPIRATORY: Clear to auscultation. Breath sounds equal bilaterally. No wheezes, rales, or rhonchi. GASTROINTESTINAL: Abdomen soft, non-tender, nondistended. EXTREMITIES: No edema or joint tenderness. B/L upper extremity strength 5/5, exam elicits myoclonus which is baseline per patient. B/L LE 5/5 strength with myoclonus present at baseline level per patient. Sensation in tact. B/L patellar reflexes hyper-reflexive BACK: Nontender without deformity or crepitance. No flank tenderness. No saddle anesthesia NEURO: AOx3. SKIN: No rash or erythema of visible areas Initial Vital Signs Initial Vital Signs: Vital Signs Temperature 98.8 F 06/23/22 15:24 Pulse Rate 96 H 06/23/22 15:24 Respiratory Rate 16 06/23/22 15:24 Blood Pressure 140/73 06/23/22 15:24 Pulse Oximetry 98 06/23/22 15:24 Oxygen Delivery Method 06/23/22 15:24 <Verona Zuluaga DO - Last Filed: 06/24/22 17:35> Initial Vital Signs Initial Vital Signs: Vital Signs Temperature 98.8 F 06/23/22 15:24 Pulse Rate 96 H 06/23/22 15:24 Respiratory Rate 16 06/23/22 15:24 Blood Pressure 140/73 06/23/22 15:24 Pulse Oximetry 98 06/23/22 15:24 Oxygen Delivery Method 06/23/22 15:24 Course <Nino Montgomery DO - Last Filed: 06/25/22 02:43> Orders Ordered: Discontinued Medications Sodium Chloride (Normal Saline 0.9%) 1,000 mls @ 1,000 mls/hr IV BOLUS ONE Stop: 06/23/22 16:58 Last Infusion: 06/23/22 20:19 Dose: 0 mls/hr Documented By: Admin: 06/23/22 16:30 Dose: 1,000 mls/hr Documented By: NR Reevaluation(s) Reevaluation #1: MRI w/wo ordered, but unable to be completed Reevaluation #2: patient feeling better this morning, with increased strength, requests ambulation to bathroom with assistance and does well, still not at baseline, but significantly improved. Vital Signs Vital signs: Vital Signs - 8 hr 06/24/22 09:59 Blood Pressure 124/73 <Verona Zuluaga DO - Last Filed: 06/24/22 17:35> Orders Ordered: Discontinued Medications Sodium Chloride (Normal Saline 0.9%) 1,000 mls @ 1,000 mls/hr IV BOLUS ONE Stop: 06/23/22 16:58 Last Infusion: 06/23/22 20:19 Dose: 0 mls/hr Documented By: Admin: 06/23/22 16:30 Dose: 1,000 mls/hr Documented By: NR Vital Signs Vital signs: Vital Signs - 8 hr 06/24/22 09:59 Blood Pressure 124/73 MDM - Neuro Symptoms/Deficit <Nino Montgomery DO - Last Filed: 06/25/22 02:43> Lab Data Result diagrams: 06/23/22 15:45 06/23/22 15:45 Labs: Lab Results 06/23/22 06/23/22 06/23/22 Range/Units 15:45 15:45 15:45 WBC 8.0 (4.5-11.0) X10^3/uL RBC 4.49 (4.0-5.2) X10^6/uL Hgb 12.6 (12.0-16.0) g/dL Hct 37.2 (36-46) % MCV 82.9 (80-100) fL MCH 28.0 (26-34) PG MCHC 33.8 (30-36) % RDW 13.1 (11.6-14.8) % Plt Count 329 (150-400) X10^3/uL Neut % (Auto) 64.5 (50-75) % Lymph % (Auto) 26.2 (25-40) % Mccracken % (Auto) 7.7 (3-14) % Eos % (Auto) 0.8 L (2-4) % Baso % (Auto) 0.8 (0-2) % Neut # (Auto) 5200 (1490-8045) /uL Lymph # (Auto) 2100 (9361-0640) /uL Mccracken # (Auto) 600 (0-900) /uL Eos # (Auto) 100 (0-450) /uL Baso # (Auto) 100 (0-100) /uL PT 11.9 (10.1-12.7) SECONDS INR 1.1 (0.9-1.3) APTT 38 H (26.4-36.2) SECONDS D-Dimer (<230) ng/mL Sodium 139 (137-145) mmol/L Potassium 3.8 (3.4-5.1) mmol/L Chloride 105 (98-107) mmol/L Carbon Dioxide 23 (22-32) mmol/L BUN 9 (7-17) mg/dL Creatinine 0.70 (0.52-1.04) mg/dL Estimated GFR > 60 (>60) mL/min BUN/Creatinine Ratio 12.9 (6-22) Glucose 106 H (70-100) mg/dL Calcium 9.2 (8.4-10.2) mg/dL Total Bilirubin 0.5 (0.2-1.3) mg/dL AST 20 (14-36) IU/L ALT 14 (<35) IU/L Alkaline Phosphatase 73 (38-126) U/L Total Creatine Kinase (30-135) U/L CK-MB (CK-2) CK-MB (CK-2) Rel Index Troponin I (0.01-0.034) ng/mL NT-Pro-B Natriuret Pep (<125) pg/mL Total Protein 8.1 (6.3-8.2) g/dL Albumin 4.7 (3.5-5.0) g/dL Globulin 3.4 (1.7-4.1) g/dL Albumin/Globulin Ratio 1.4 (1.0-2.8) Urine RBC (0-5/HPF) Urine WBC (0-5/HPF) Ur Squamous Epith Cells (0-5/HPF) Ur Transition Epith Cell (0-5/HPF) Urine Bacteria (None) Ur Culture Indicated? SARS-CoV-2 (PCR) (Negative) 06/23/22 06/23/22 06/23/22 Range/Units 15:45 15:45 16:31 WBC (4.5-11.0) X10^3/uL RBC (4.0-5.2) X10^6/uL Hgb (12.0-16.0) g/dL Hct (36-46) % MCV (80-100) fL MCH (26-34) PG MCHC (30-36) % RDW (11.6-14.8) % Plt Count (150-400) X10^3/uL Neut % (Auto) (50-75) % Lymph % (Auto) (25-40) % Mccracken % (Auto) (3-14) % Eos % (Auto) (2-4) % Baso % (Auto) (0-2) % Neut # (Auto) (5078-1384) /uL Lymph # (Auto) (2662-9174) /uL Mccracken # (Auto) (0-900) /uL Eos # (Auto) (0-450) /uL Baso # (Auto) (0-100) /uL PT (10.1-12.7) SECONDS INR (0.9-1.3) APTT (26.4-36.2) SECONDS D-Dimer < 200 (<230) ng/mL Sodium (137-145) mmol/L Potassium (3.4-5.1) mmol/L Chloride (98-107) mmol/L Carbon Dioxide (22-32) mmol/L BUN (7-17) mg/dL Creatinine (0.52-1.04) mg/dL Estimated GFR (>60) mL/min BUN/Creatinine Ratio (6-22) Glucose (70-100) mg/dL Calcium (8.4-10.2) mg/dL Total Bilirubin (0.2-1.3) mg/dL AST (14-36) IU/L ALT (<35) IU/L Alkaline Phosphatase (38-126) U/L Total Creatine Kinase 73 (30-135) U/L CK-MB (CK-2) TNP CK-MB (CK-2) Rel Index TNP Troponin I < 0.012 (0.01-0.034) ng/mL NT-Pro-B Natriuret Pep 185 H (<125) pg/mL Total Protein (6.3-8.2) g/dL Albumin (3.5-5.0) g/dL Globulin (1.7-4.1) g/dL Albumin/Globulin Ratio (1.0-2.8) Urine RBC 5-10/hpf H (0-5/HPF) Urine WBC 0-1/hpf (0-5/HPF) Ur Squamous Epith Cells 1-5 /hpf (0-5/HPF) Ur Transition Epith Cell 0-1/hpf (0-5/HPF) Urine Bacteria Occasional (0-1) (None) Ur Culture Indicated? Cult not indicated SARS-CoV-2 (PCR) (Negative) 06/23/22 Range/Units 17:04 WBC (4.5-11.0) X10^3/uL RBC (4.0-5.2) X10^6/uL Hgb (12.0-16.0) g/dL Hct (36-46) % MCV (80-100) fL MCH (26-34) PG MCHC (30-36) % RDW (11.6-14.8) % Plt Count (150-400) X10^3/uL Neut % (Auto) (50-75) % Lymph % (Auto) (25-40) % Mccracken % (Auto) (3-14) % Eos % (Auto) (2-4) % Baso % (Auto) (0-2) % Neut # (Auto) (5108-4920) /uL Lymph # (Auto) (3457-9147) /uL Mccracken # (Auto) (0-900) /uL Eos # (Auto) (0-450) /uL Baso # (Auto) (0-100) /uL PT (10.1-12.7) SECONDS INR (0.9-1.3) APTT (26.4-36.2) SECONDS D-Dimer (<230) ng/mL Sodium (137-145) mmol/L Potassium (3.4-5.1) mmol/L Chloride (98-107) mmol/L Carbon Dioxide (22-32) mmol/L BUN (7-17) mg/dL Creatinine (0.52-1.04) mg/dL Estimated GFR (>60) mL/min BUN/Creatinine Ratio (6-22) Glucose (70-100) mg/dL Calcium (8.4-10.2) mg/dL Total Bilirubin (0.2-1.3) mg/dL AST (14-36) IU/L ALT (<35) IU/L Alkaline Phosphatase (38-126) U/L Total Creatine Kinase (30-135) U/L CK-MB (CK-2) CK-MB (CK-2) Rel Index Troponin I (0.01-0.034) ng/mL NT-Pro-B Natriuret Pep (<125) pg/mL Total Protein (6.3-8.2) g/dL Albumin (3.5-5.0) g/dL Globulin (1.7-4.1) g/dL Albumin/Globulin Ratio (1.0-2.8) Urine RBC (0-5/HPF) Urine WBC (0-5/HPF) Ur Squamous Epith Cells (0-5/HPF) Ur Transition Epith Cell (0-5/HPF) Urine Bacteria (None) Ur Culture Indicated? SARS-CoV-2 (PCR) Negative (Negative) Point of Care Testing Test Results Negative Glucose POC 85 Urine Dip Bedside Urine Glucose Negative Bedside Urine Bilirubin - Negative Bedside Urine Ketone - Negative Urine Specific Freeborn 1.010 Bedside Urine Occult Blood + Bedside Urine pH 7.0 Bedside Urine Protein - Negative Bedside Urine Urobilinogen - Negative Bedside Urine Nitrite - Negative <Verona Zuluaga DO - Last Filed: 06/24/22 17:35> Lab Data Labs: Lab Results 06/23/22 06/23/22 06/23/22 Range/Units 15:45 15:45 15:45 WBC 8.0 (4.5-11.0) X10^3/uL RBC 4.49 (4.0-5.2) X10^6/uL Hgb 12.6 (12.0-16.0) g/dL Hct 37.2 (36-46) % MCV 82.9 (80-100) fL MCH 28.0 (26-34) PG MCHC 33.8 (30-36) % RDW 13.1 (11.6-14.8) % Plt Count 329 (150-400) X10^3/uL Neut % (Auto) 64.5 (50-75) % Lymph % (Auto) 26.2 (25-40) % Mccracken % (Auto) 7.7 (3-14) % Eos % (Auto) 0.8 L (2-4) % Baso % (Auto) 0.8 (0-2) % Neut # (Auto) 5200 (3790-0200) /uL Lymph # (Auto) 2100 (1044-7868) /uL Mccracken # (Auto) 600 (0-900) /uL Eos # (Auto) 100 (0-450) /uL Baso # (Auto) 100 (0-100) /uL PT 11.9 (10.1-12.7) SECONDS INR 1.1 (0.9-1.3) APTT 38 H (26.4-36.2) SECONDS D-Dimer (<230) ng/mL Sodium 139 (137-145) mmol/L Potassium 3.8 (3.4-5.1) mmol/L Chloride 105 (98-107) mmol/L Carbon Dioxide 23 (22-32) mmol/L BUN 9 (7-17) mg/dL Creatinine 0.70 (0.52-1.04) mg/dL Estimated GFR > 60 (>60) mL/min BUN/Creatinine Ratio 12.9 (6-22) Glucose 106 H (70-100) mg/dL Calcium 9.2 (8.4-10.2) mg/dL Total Bilirubin 0.5 (0.2-1.3) mg/dL AST 20 (14-36) IU/L ALT 14 (<35) IU/L Alkaline Phosphatase 73 (38-126) U/L Total Creatine Kinase (30-135) U/L CK-MB (CK-2) CK-MB (CK-2) Rel Index Troponin I (0.01-0.034) ng/mL NT-Pro-B Natriuret Pep (<125) pg/mL Total Protein 8.1 (6.3-8.2) g/dL Albumin 4.7 (3.5-5.0) g/dL Globulin 3.4 (1.7-4.1) g/dL Albumin/Globulin Ratio 1.4 (1.0-2.8) Urine RBC (0-5/HPF) Urine WBC (0-5/HPF) Ur Squamous Epith Cells (0-5/HPF) Ur Transition Epith Cell (0-5/HPF) Urine Bacteria (None) Ur Culture Indicated? SARS-CoV-2 (PCR) (Negative) 06/23/22 06/23/22 06/23/22 Range/Units 15:45 15:45 16:31 WBC (4.5-11.0) X10^3/uL RBC (4.0-5.2) X10^6/uL Hgb (12.0-16.0) g/dL Hct (36-46) % MCV (80-100) fL MCH (26-34) PG MCHC (30-36) % RDW (11.6-14.8) % Plt Count (150-400) X10^3/uL Neut % (Auto) (50-75) % Lymph % (Auto) (25-40) % Mccracken % (Auto) (3-14) % Eos % (Auto) (2-4) % Baso % (Auto) (0-2) % Neut # (Auto) (6369-4711) /uL Lymph # (Auto) (6144-0685) /uL Mccracken # (Auto) (0-900) /uL Eos # (Auto) (0-450) /uL Baso # (Auto) (0-100) /uL PT (10.1-12.7) SECONDS INR (0.9-1.3) APTT (26.4-36.2) SECONDS D-Dimer < 200 (<230) ng/mL Sodium (137-145) mmol/L Potassium (3.4-5.1) mmol/L Chloride (98-107) mmol/L Carbon Dioxide (22-32) mmol/L BUN (7-17) mg/dL Creatinine (0.52-1.04) mg/dL Estimated GFR (>60) mL/min BUN/Creatinine Ratio (6-22) Glucose (70-100) mg/dL Calcium (8.4-10.2) mg/dL Total Bilirubin (0.2-1.3) mg/dL AST (14-36) IU/L ALT (<35) IU/L Alkaline Phosphatase (38-126) U/L Total Creatine Kinase 73 (30-135) U/L CK-MB (CK-2) TNP CK-MB (CK-2) Rel Index TNP Troponin I < 0.012 (0.01-0.034) ng/mL NT-Pro-B Natriuret Pep 185 H (<125) pg/mL Total Protein (6.3-8.2) g/dL Albumin (3.5-5.0) g/dL Globulin (1.7-4.1) g/dL Albumin/Globulin Ratio (1.0-2.8) Urine RBC 5-10/hpf H (0-5/HPF) Urine WBC 0-1/hpf (0-5/HPF) Ur Squamous Epith Cells 1-5 /hpf (0-5/HPF) Ur Transition Epith Cell 0-1/hpf (0-5/HPF) Urine Bacteria Occasional (0-1) (None) Ur Culture Indicated? Cult not indicated SARS-CoV-2 (PCR) (Negative) 06/23/22 Range/Units 17:04 WBC (4.5-11.0) X10^3/uL RBC (4.0-5.2) X10^6/uL Hgb (12.0-16.0) g/dL Hct (36-46) % MCV (80-100) fL MCH (26-34) PG MCHC (30-36) % RDW (11.6-14.8) % Plt Count (150-400) X10^3/uL Neut % (Auto) (50-75) % Lymph % (Auto) (25-40) % Mccracken % (Auto) (3-14) % Eos % (Auto) (2-4) % Baso % (Auto) (0-2) % Neut # (Auto) (7900-3259) /uL Lymph # (Auto) (6228-2666) /uL Mccracken # (Auto) (0-900) /uL Eos # (Auto) (0-450) /uL Baso # (Auto) (0-100) /uL PT (10.1-12.7) SECONDS INR (0.9-1.3) APTT (26.4-36.2) SECONDS D-Dimer (<230) ng/mL Sodium (137-145) mmol/L Potassium (3.4-5.1) mmol/L Chloride (98-107) mmol/L Carbon Dioxide (22-32) mmol/L BUN (7-17) mg/dL Creatinine (0.52-1.04) mg/dL Estimated GFR (>60) mL/min BUN/Creatinine Ratio (6-22) Glucose (70-100) mg/dL Calcium (8.4-10.2) mg/dL Total Bilirubin (0.2-1.3) mg/dL AST (14-36) IU/L ALT (<35) IU/L Alkaline Phosphatase (38-126) U/L Total Creatine Kinase (30-135) U/L CK-MB (CK-2) CK-MB (CK-2) Rel Index Troponin I (0.01-0.034) ng/mL NT-Pro-B Natriuret Pep (<125) pg/mL Total Protein (6.3-8.2) g/dL Albumin (3.5-5.0) g/dL Globulin (1.7-4.1) g/dL Albumin/Globulin Ratio (1.0-2.8) Urine RBC (0-5/HPF) Urine WBC (0-5/HPF) Ur Squamous Epith Cells (0-5/HPF) Ur Transition Epith Cell (0-5/HPF) Urine Bacteria (None) Ur Culture Indicated? SARS-CoV-2 (PCR) Negative (Negative) Point of Care Testing Test Results Negative Glucose POC 85 Urine Dip Bedside Urine Glucose Negative Bedside Urine Bilirubin - Negative Bedside Urine Ketone - Negative Urine Specific Freeborn 1.010 Bedside Urine Occult Blood + Bedside Urine pH 7.0 Bedside Urine Protein - Negative Bedside Urine Urobilinogen - Negative Bedside Urine Nitrite - Negative Imaging Data CT scan - head: Radiologist's Impression: Signed Patient: Leandra Bucio MR#: [id number] : 1980 Acct:[id number] Age/Sex: 41 / F Date of Service: 06/23/22 Loc: ED Accession Number: [id number] ?? Procedure: CT head/brain wo con Ordering Provider: Marisela Townsend D.O. PROCEDURE:? CT HEAD/BRAIN WO CON ? INDICATIONS:? weakness, dizziness ? TECHNIQUE:? Noncontrast 4.5 mm thick angled axial sections acquired from the foramen magnum to the vertex, with coronal and sagittal reformats.? For radiation dose reduction, the following was used:? automated exposure control, adjustment of mA and/or kV according to patient size.? ? COMPARISON:? None. ? FINDINGS:? Image quality:? Excellent.? ? CSF spaces:? Basal cisterns are patent.? No extra-axial fluid collections.? Ventricles are normal in size and shape.? ? Brain:? No midline shift.? No intracranial masses or hemorrhage.? Hale-white matter interface is normal.? ? Skull and face:? Calvarium and visualized facial bones are intact, without suspicious lesions.? ? Sinuses:? Visualized sinuses and mastoids are clear.? ? IMPRESSION:? No acute intracranial abnormality.? ? Dictated by: Keith Florence M.D. on 06/23/2022 at 16:16 ? ? Approved by: Keith Florence M.D. on 06/23/2022 at 16:17 Chest x-ray: Radiologist's Impression: tient: Leandra Bucio MR#: [id number] : 1980 Acct:[id number] Age/Sex: 41 / F Date of Service: 06/23/22 Loc: ED Accession Number: [id number] ?? Procedure: XR chest 1V Ordering Provider: Marisela Townsend D.O. PROCEDURE:? XR CHEST 1V ? INDICATIONS:? leg weakness, trouble walking, hx arnold chiari, syncope ? TECHNIQUE:? One view of the chest was acquired.? ? COMPARISON:[facility], CHEST 2 VIEW, 03/14/2018, 23:25. ? FINDINGS:? ? Surgical changes and devices:? None.? ? Lungs and pleura:? Lungs are clear.? No pleural effusions or pneumothorax.? ? Mediastinum:? Mediastinal contours appear normal.? Heart size is normal.? ? Bones and chest wall:? No suspicious bony lesions.? Overlying soft tissues appear unremarkable.? ? IMPRESSION:? No acute cardiopulmonary pathology. ? ? Dictated by: Tyrel Cook M.D. on 06/23/2022 at 15:34 ? ? Approved by: Tyrel Cook M.D. on 06/23/2022 at 15:34 ? CT - cervical spine: Radiologist's Impression: CT Scan Report Signed Patient: Leandra Bucio MR#: [id number] : 1980 Acct:[id number] Age/Sex: 41 / F Date of Service: 06/23/22 Loc: ED Accession Number: [id number] ?? Procedure: CT cervical spine w con Ordering Provider: Nino Montgomery D.O. PROCEDURE:? CT CERVIAL SPINE W CON ? INDICATIONS:? arm / leg numbness and weakness, prior Arnold Chiari ? TECHNIQUE:? After the administration of intravenous Isovue contrast, 3 mm thick sections ac quired through the levels of interest.? Sagittal and coronal reformats were then constructed.? For radiation dose reduction, the following was used:? automated exposure control.? ? COMPARISON:? [facility], MR, MR CERVICAL SPINE WITHOUT CONTRAST, 10/02/2019, 17:38. ? FINDINGS:? Image quality:? Excellent.? ? Bones:? No fractures or subluxation.? There is straightening of the cervical albino dosis.? Postsurgical changes are redemonstrated status post suboccipital craniectomy for Chiari 1 malformation. ? Soft tissues:? No prevertebral soft tissue swelling.? No abnormal fluid collections in the surgical bed.? No mass lesions within the neck.? No lymphadenopathy by size criteria. ? IMPRESSION:? ? 1. No fracture or subluxation. ? 2. Postsurgical changes redemonstrated status post suboccipital craniectomy.? No abnormal fluid collections in the surgical bed. ? If clinical concern persists, recommend further evaluation with MRI.? ? ? Dictated by: Vince Garvey M.D. on 06/23/2022 at 20:57 ? ? Approved by: Vince Garvey M.D. on 06/23/2022 at 21:0 MR cervical: Radiologist's Impression: KRYS Anderson [id number] Magnetic Resonance Report Signed Patient: Leandra Bucio MR#: [id number] : 1980 Acct:[id number] Age/Sex: 41 / F Date of Service: 06/23/22 Loc: Accession Number: [id number] ?? Procedure: MR cervical spine wo/w con Ordering Provider: Nino Montgomery D.O. PROCEDURE:? MR CERVICAL SPINE WO/W CON ? INDICATIONS:? prior arnold chiari repair, new neuro symptoms ? TECHNIQUE:? Noncontrast sagittal T1 spin echo and T2 fast spin echo, sagittal STIR, foraminal oblique sagittal T2 fast spin echo, axial gradient echo or T2 fast spin echo through the cervical spine.? After the administration of contrast, axial and sagittal T1 spin echo with fat saturation through the cervical spine.? ? COMPARISON:? [facility], MR, MR CERVICAL SPINE WITHOUT CONTRAST, 10/02/2019, 17:38.? [facility], CT, CT HEAD/BRAIN WO CON, 06/23/2022, 15:57.? [facility], CT, CT CERVIAL SPINE W CON, 06/23/2022, 20:20. ? FINDINGS:? Image quality:? Excellent.? ? Alignment and curvature:? There is normal bony alignment.? ? Bones:? Postsurgical changes compatible with prior suboccipital craniectomy for Chiari malformation.? Marrow is normal in overall signal, without suspicious enhancement.? ? Spinal cord:? Visualized spinal cord has normal size and signal.? No cerebellar tonsillar herniation.? No abnormal intramedullary enhancement.? ? Paraspinous soft tissues:? No paravertebral masses or suspicious enhancement.? ? C2-3:? Normal appearance.? ? C3-4:? Normal appearance.? ? C4-5:? Slight loss of disc signal.? Mild, diffuse disc bulge.? No central stenosis.? Mild right neural foraminal narrowing.? No neural compression. ? C5-6:? Slight loss of disc signal.? Mild, diffuse disc bulge.? No central stenosis.? Mild bilateral neural foraminal narrowing.? No neural compression. ? C6-7:? Normal appearance.? ? C7-T1:? Normal appearance.? ? ? IMPRESSION:? ? 1. Stable examination compared to October 02, 2019.? ? 2. Status post suboccipital craniectomy for Chiari 1 malformation. ? 3. No central stenosis.? ? 4. No severe neural foraminal narrowing. ? 5. No neural compression. ? 6. No suspicious postcontrast enhancement. ? ? ? Dictated by: Cheri Mceknna MD, PhD on 06/24/2022 at 9:14 ? ? Approved by: Cheri Mckenna MD, PhD on 06/24/2022 at 9:21 ? MDM Narrative Medical decision making narrative: Patient signed out to me by Dr. Rocha. I have seen and evaluated patient myself. Overall she is feeling a bit better she ambulated this morning without any difficulty. She has been having some tremors and headache for the last 24 hours. Workup in the emergency department complaining MRI of the cervical spine are negative. She has a neurologist whom she can follow-up with. 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 Discharge Plan Departure Patient Disposition: Home Clinical Impression: Complaint of paresthesia Instructions: DI for Peripheral Neuropathy Activity Restrictions/Additional Instructions: *You have been diagnosed with paresthesia *What to do: At this time please follow-up with her neurologist. Your MRI toda y of your neck and CT of your head are negative. You may need further imaging and workup if things continue to get worse *Continue to take medications as directed *Follow up with your primary care provider in 2-3 days or call [phone] *Return to ER if you should have increasing weakness numbness tingling or any new, worsening or concerning symptoms Prescriptions: No Action cyclobenzaprine 5 mg tablet 5 mg PO TID PRN (Reason: muscle spasm) Qty: 30 3RF escitalopram oxalate 10 mg tablet 10 mg PO DAILY Qty: 90 1RF amitriptyline 25 mg tablet See Rx Instructions .ROUTE .COMPLEX Qty: 90 0RF Dose Instruction: TAKE 1 TABLET BY MOUTH AT BEDTIME Rx Instructions: TAKE 1 TABLET BY MOUTH AT BEDTIME tramadol 50 mg tablet 50 mg PO TID PRN (Reason: severe pain) Qty: 60 0RF Rx Instructions: additionl tramadol to reach #90 this month and planning #90 monthly going forward, assuming pain contract updated with clinic periodically multivitamin tablet,chewable 1 tab PO DAILY Referrals: Desiree Lin MD [Primary Care Provider] - Visit Report Forms: Patient Portal/API
--- NOTE | 2022-06-23 18:49 | DI.MRI.S_ITS ---
PROCEDURE: MR CERVICAL SPINE WO/W CON INDICATIONS: prior arnold chiari repair, new neuro symptoms TECHNIQUE: Noncontrast sagittal T1 spin echo and T2 fast spin echo, sagittal STIR, foraminal oblique sagittal T2 fast spin echo, axial gradient echo or T2 fast spin echo through the cervical spine. After the administration of contrast, axial and sagittal T1 spin echo with fat saturation through the cervical spine. COMPARISON: [facility], MR, MR CERVICAL SPINE WITHOUT CONTRAST, 10/02/2019, 17:38. [facility], CT, CT HEAD/BRAIN WO CON, 06/23/2022, 15:57. [facility], CT, CT CERVIAL SPINE W CON, 06/23/2022, 20:20. FINDINGS: Image quality: Excellent. Alignment and curvature: There is normal bony alignment. Bones: Postsurgical changes compatible with prior suboccipital craniectomy for Chiari malformation. Marrow is normal in overall signal, without suspicious enhancement. Spinal cord: Visualized spinal cord has normal size and signal. No cerebellar tonsillar herniation. No abnormal intramedullary enhancement. Paraspinous soft tissues: No paravertebral masses or suspicious enhancement. C2-3: Normal appearance. C3-4: Normal appearance. C4-5: Slight loss of disc signal. Mild, diffuse disc bulge. No central stenosis. Mild right neural foraminal narrowing. No neural compression. C5-6: Slight loss of disc signal. Mild, diffuse disc bulge. No central stenosis. Mild bilateral neural foraminal narrowing. No neural compression. C6-7: Normal appearance. C7-T1: Normal appearance. IMPRESSION: 1. Stable examination compared to October 02, 2019. 2. Status post suboccipital craniectomy for Chiari 1 malformation. 3. No central stenosis. 4. No severe neural foraminal narrowing. 5. No neural compression. 6. No suspicious postcontrast enhancement. Dictated by: Cheri Mckenna MD, PhD on 06/24/2022 at 9:14 Approved by: Cheri Mckenna MD, PhD on 06/24/2022 at 9:21
--- NOTE | 2022-06-23 20:12 | DI.CT.S_ITS ---
PROCEDURE: CT CERVIAL SPINE W CON INDICATIONS: arm / leg numbness and weakness, prior Arnold Chiari TECHNIQUE: After the administration of intravenous Isovue contrast, 3 mm thick sections acquired through the levels of interest. Sagittal and coronal reformats were then constructed. For radiation dose reduction, the following was used: automated exposure control. COMPARISON: [facility], MR, MR CERVICAL SPINE WITHOUT CONTRAST, 10/02/2019, 17:38. FINDINGS: Image quality: Excellent. Bones: No fractures or subluxation. There is straightening of the cervical lordosis. Postsurgical changes are redemonstrated status post suboccipital craniectomy for Chiari 1 malformation. Soft tissues: No prevertebral soft tissue swelling. No abnormal fluid collections in the surgical bed. No mass lesions within the neck. No lymphadenopathy by size criteria. IMPRESSION: 1. No fracture or subluxation. 2. Postsurgical changes redemonstrated status post suboccipital craniectomy. No abnormal fluid collections in the surgical bed. If clinical concern persists, recommend further evaluation with MRI. Dictated by: Vince Garvey M.D. on 06/23/2022 at 20:57 Approved by: Vince Garvey M.D. on 06/23/2022 at 21:03
[2022-06-24] VITALS (23 sets, daily range): BP systolic 124–129; BP diastolic 70–73; PULSE 69–99; RESP 18–26; O2SAT 95–99
== END 2022-06-24 09:59 | disposition home or self-care (01) ==
PROVIDERS: Emergency Medicine; Emergency Provider Emergency Medicine; PCP Family Medicine
DX: R20.2 Paresthesia of skin (principal); G93.5 Compression of brain; Z20.822 Contact with and (suspected) exposure to COVID-19
CPT/HCPCS: 70450; 71045; 72126; 72156; 80053; 81003; 81015; 81025; 82550; 82962; 83880; 84484; 85025; 85379; 85610; 85730; 87635; 93005; 96360; 96361; 99285; C9803; Q9967

== ENCOUNTER → 2023-01-24 14:28 | Outpatient (CLI) | payer MEDICARE, MEDICAID, SELFPAY ==
--- NOTE | 2023-01-24 | DI.MG.S_ITS ---
BILATERAL DIGITAL SCREENING MAMMOGRAM 3D/2D WITH CAD: 01/24/2023 CLINICAL: Routine screening. Comparison is made to exams dated: 01/18/2022 mammogram, 10/03/2019 mammogram, and 03/21/2017 mammogram - [facility]. Both breasts are extremely dense, which lowers the sensitivity of mammography (category d />75% glandular tissue). Current study was also evaluated with a Computer Aided Detection (CAD) system. There are benign calcifications in both breasts. There also are benign post operative findings in both breasts. No significant masses, calcifications, or other findings are seen in either breast. There has been no significant interval change. IMPRESSION: BENIGN There is no mammographic evidence of malignancy. A 1 year screening mammogram is recommended. This exam was interpreted at Station ID: [id number]. NOTE: For mammograms, a report in lay terms will be sent to the patient. Approximately 15% of breast malignancies will not be visualized mammographically. In the management of a palpable breast mass, a negative mammogram must not discourage biopsy of a clinically suspicious lesion. Electronically Signed By: Keith Florence M.D., jr/lina:01/24/2023 14:58:52 letter sent: Normal Exam ACR BI-RADS Category 2: Benign Finding(s) 3342F
== END ==
PROVIDERS: PCP Family Medicine; Referring Provider Family Medicine; Visit Provider Family Medicine
DX: Z12.31 Encounter for screening mammogram for malignant neoplasm of breast (principal)
CPT/HCPCS: 77063; 77067

== ENCOUNTER → 2023-03-22 11:54 | Outpatient (CLI) | payer MEDICARE, MEDICAID, SELFPAY ==
[2023-03-22 12:50] LABS: Hematocrit 33.8 % (36-46); Hemoglobin 11.3 g/dL (12.0-16.0); Mean Corpuscular HGB Conc 33.6 % (30-36); Mean Corpuscular Hemoglobin 27.4 PG (26-34); Mean Corpuscular Volume 81.7 fL (80-100); Platelet Count 363 X10^3/uL (150-400); Red Blood Cell Count 4.13 X10^6/uL (4.0-5.2); Red Cell Distribution Width 13.8 % (11.6-14.8); White Blood Cell Count 7.8 X10^3/uL (4.5-11.0)
[2023-03-22 13:06] LABS: Alanine Aminotransferase 16 IU/L (<35); Albumin 4.3 g/dL (3.5-5.0); Albumin Globulin Ratio 1.4 (1.0-2.8); Alkaline Phosphatase 83 U/L (38-126); Aspartate Aminotransferase 27 IU/L (14-36); BUN Creatinine Ratio 9.5 (6-22); Bilirubin Total 0.7 mg/dL (0.2-1.3); Blood Urea Nitrogen 7 mg/dL (7-17); Carbon Dioxide 27 mmol/L (22-32); Chloride 100 mmol/L (98-107); Cholesterol 221 mg/dL (140-199); Estimated Glomerular Filt Rate > 60 mL/min (>60); Globulin 3.1 g/dL (1.7-4.1); Glucose 92 mg/dL (70-100); HDL Cholesterol 44 mg/dL (40-60); HEMOLYSIS < 15 (0-50); Iron 40 ug/dL (37-170); LDL Cholesterol Calculated 149 mg/dL (<100); Potassium 4.1 mmol/L (3.4-5.1); Sodium 136 mmol/L (137-145); Total Protein 7.4 g/dL (6.3-8.2); Triglycerides 140 mg/dL (35-150)
[2023-03-22 13:16] LABS: Percent Iron Saturation 10 % (15-50); Total Iron Binding Capacity 404 ug/dL (265-497); Transferrin 305 mg/dL (206-381)
[2023-03-22 13:39] LABS: Ferritin 13 ng/mL (6-137)
[2023-03-23 15:51] LABS: Labcorp Hemoglobin (Hb) A1c 5.5 % (4.8-5.6)
== END ==
PROVIDERS: PCP Family Medicine; Referring Provider Family Medicine; Visit Provider Family Medicine
DX: D50.9 Iron deficiency anemia, unspecified (principal); G93.5 Compression of brain; Z13.220 Encounter for screening for lipoid disorders
CPT/HCPCS: 36415; 80053; 80061; 82728; 83036; 83540; 83550; 85027

== ENCOUNTER → 2023-12-25 06:41 | Outpatient (CLI) | payer MEDICARE, MEDICAID, SELFPAY ==
--- NOTE | 2023-12-25 06:43 | DI.US.S_ITS ---
PROCEDURE: US PELVIC COMPLETE INDICATIONS: FIBROIDS; IRREGULAR BLEEDING TECHNIQUE: Real-time scanning was performed of the pelvic organs, with image documentation. Additional endovaginal scanning was necessary due to incomplete visualization of the adnexal and endometrial structures by transabdominal scanning. COMPARISON: Merged With [facility], , US PELVIC COMPLETE, 11/04/2021, 9:22. FINDINGS: Uterus: Uterus is anteverted and measures 12.2 x 7.3 x 11.8 cm. The myometrium is heterogeneous. The endometrium the endometrium is not visualized due to multiple uterine fibroids. Uterine fibroids include: 1. Right posterior intramural 5.4 x 6.0 x 5.9 cm (previously measured 3.9 x 3.0 x 3.9 cm. 2. Left posterior intramural 6.5 x 6.1 x 5.4 cm (previously measured 5.8 x 6.2 x 5.0 cm) 3. Midline posterior submucosal 1.4 x 1.6 x 1.2 cm 4. Midline anterior intramural 2.5 x 2.4 x 1.5 cm Ovaries: The ovaries are not visualized. Other: No pathologic free abdominal or pelvic fluid. IMPRESSION: 1. Fibroid uterus. Fibroids that were previously visualized appear larger in size when compared with the study dated November 04, 2021. 2 additional fibroids are visualized which were not documented on the prior study. We strive to produce accurate, complete, and clear reports of imaging services. To assist us in improving patient care, this report was composed using standard report templates and voice recognition software. Therefore, it may contain abnormal punctuation, insertions and/or omissions. Occasional wrong-word or sound-alike substitutions may occur. Though we review the report and make efforts to correct it, we do recommend that the report be read carefully in proper context to recognize any text inaccuracies. Dictated by: Yesenia Coates M.D. on 12/25/2023 at 17:13 Approved by: Yesenia Coates M.D. on 12/25/2023 at 17:16
== END ==
LOC: US 06:41
PROVIDERS: PCP Family Medicine; Referring Provider Student in an Organized Health Care Education/Training Program; Visit Provider Student in an Organized Health Care Education/Training Program
DX: N92.6 Irregular menstruation, unspecified (principal); D25.1 Intramural leiomyoma of uterus; D25.0 Submucous leiomyoma of uterus
CPT/HCPCS: 76830; 76856

== ENCOUNTER 2024-01-25 08:45 | Day surgery (SDC) | payer MEDICARE, SELFPAY ==
[2024-01-23 14:34] VITALS: BMI 27.4
[2024-01-25] VITALS (19 sets, daily range): BP systolic 104–135; BP diastolic 57–76; PULSE 91–120; RESP 8–18; TEMP 36.1–36.9; O2SAT 94–100; BMI 27.4
--- NOTE | 2024-01-25 | PATH_ITS ---
[facility] Accession Number: [id number] No. of containers..01 Tissue . 01 Material submitted: . uterus - UTERUS, BILATERAL FALLOPIAN TUBES . 01 Diagnosis: UTERUS, BILATERAL FALLOPIAN TUBES; HYSTERECTOMY AND BILATERAL SALPINGECTOMIES (PRESERVED OVARIES): Cervix: Mild chronic cervicitis and reactive changes. Negative for dysplasia and malignancy. Endometrium: Late secretory endometrium without significant cytologic atypia, hyperplasia or malignancy. Benign leiomyomas (up to 7.5 cm in diameter) without significant cytologic atypia, increased mitotic activity, necrosis or malignancy. Benign bilateral fallopian tubes and paratubal cysts. [facility] 02/01/2024 1342 Local . 01 Electronically signed: . Alysia Betancourt MD, Pathologist NPI- [id number] . 01 Gross description: . The specimen is received in formalin, labeled with the patient's name, , and uterus, bilateral fallopian tubes, and consists of a fragmented uterus (441 grams, 15.5 x 14.4 x 7.4 cm in aggregate) with cervix (3.3 x 3.3 cm), two detached, unoriented, fimbriated fallopian tubes (6.3 x 0.7 cm and 5.5 x 0.5 cm, respectively), and no additional adnexa. The ectocervix is pink-marshall and glistening with a slit-like os measuring 0.5 cm in diameter. The paracervical margin is inked blue. . The serosa is marshall and smooth with no evidence of hemorrhage or adhesion identified. The endometrium is marshall and velvety, averaging 0.1 cm thick. The endocervical canal measures 2.2 cm in length and has marshall herringbone mucosa. . Multiple white, whorled nodules are identified measuring up to 7.5 cm in greatest dimension, with no hemorrhage or necrosis identified. The remaining myometrium is marshall, trabecular, and unremarkable. . The fallopian tubes have marshall, smooth serosa with multiple cystic structures measuring up to 0.6 cm in greatest dimension, filled with marshall serous fluid. Sectioning reveals unremarkable stellate lumen. . Tangled Yarn Worker sections are submitted as follows: A1-A2: Cervix. A3: Serosa. A4: Endometrium. A5-A6: Nodules. A7: Longer fallopian tube to include one-half of bisected fimbriae and cross sections. A8: [place] fallopian tube to include one-half of bisected fimbriae and cross sections. ([id number]) /MRV 01/26/2024 1239 Local . 01 Pathologist provided ICD-10: D25.9, N92.0, D21.9 . 01 CPT . 470036 Specimen Comment: A courtesy copy of this report has been sent to [phone] Performed at: 01 [facility] [address] [place] [address], [place], [place] [id number] MD Vince Raza MD Phone: [phone]
[2024-01-25] MEDS: LACTATED RINGERS 1,000 ML 100 ML IV ×2 (09:21→16:15)
--- NOTE | 2024-01-25 10:45 | PM.PREOP ---
Pre-operative Note COVID-19 COVID-19 status: Not tested Interval Note History & Physical reviewed/Exam performed by Physician: Yes Changes to H&P: No
[2024-01-25] MEDS: SCOPOLAMINE 1 PATCH TOP (11:01)
[2024-01-25] MEDS: ACETAMINOPHEN 325 MG TABLET 975 MG PO (11:01)
[2024-01-25] MEDS: CEFAZOLIN 2 GM/100 ML PREMIX 100 ML IV (11:33)
--- NOTE | 2024-01-25 12:10 | SUR.OPER ---
Lithotomy on padded OR bed. [place] Pad Positioner under torso. Head on pillow, arms padded and tucked at sides. Legs secured in padded yellow fins stirrups.
[2024-01-25] MEDS: BUPIVACAINE 0.5% (PF) 30 ML, EPINEPHrine 0.15 MG INJ (12:27)
[2024-01-25] MEDS: ROPIVACAINE 0.2% PF 2 MG/ML 10ML AMP 20 ML INJ (13:59)
--- NOTE | 2024-01-25 14:23 | PM.GYNOP.1 ---
Operative Date/Time/Diagnoses Date of procedure: 01/25/24 Time of procedure: 11:40 Pre-op diagnosis: Menorrhagia Uterine fibroids Post-op diagnosis: same Procedure & Clinicians Procedure: Procedures Operation Date: 01/25/24 10:15 Actual Procedure Side Surgeon p Laparoscopic Total Hysterectomy with bilateral salpingectomy, lysis of adhesions Bilateral Jose Donnelly MD Indications: Patient is a 43-year-old , LMP 12/05/2023, who presents with a greater than 10 year history of progressively severe menorrhagia associated with the presence of fibroids. The patient experienced menarche at age 14 and has had regular predictable periods throughout her adult life but over the last 10 years her interval between periods is narrowed to 20-24 days with flow lasting 7-12 days with each cycle. This has resulted in anemia for which she has required iron infusions in the past. Her last H&H was ?a while ago? but she is seeing her primary care provider in the next week and will have 1 performed at that time. Paps have always been normal with her most recent in 2021. Patient's menses are not only heavy but associated with large clots and she has a sense of pelvic pressure, difficulty passing bowel movements, and deep dyspareunia. In addition she has a sense of being bloated on a continuous basis. She denies intermenstrual spotting. Endometrial sampling performed in early December 2023 showed only secretory endometrium without atypia, hyperplasia, or neoplasia. Pap was in 2021 and was normal. Her most recent pelvic ultrasound shows: FINDINGS: Uterus: Uterus is anteverted and measures 12.2 x 7.3 x 11.8 cm. The myometrium is heterogeneous. The endometrium the endometrium is not visualized due to multiple uterine fibroids. Uterine fibroids include: 1. Right posterior intramural 5.4 x 6.0 x 5.9 cm (previously measured 3.9 x 3.0 x 3.9 cm. 2. Left posterior intramural 6.5 x 6.1 x 5.4 cm (previously measured 5.8 x 6.2 x 5.0 cm) 3. Midline posterior submucosal 1.4 x 1.6 x 1.2 cm 4. Midline anterior intramural 2.5 x 2.4 x 1.5 cm Ovaries: The ovaries are not visualized. Other: No pathologic free abdominal or pelvic fluid. IMPRESSION: 1. Fibroid uterus. Fibroids that were previously visualized appear larger in size when compared with the study dated November 04, 2021. 2 additional fibroids are visualized which were not documented on the prior study. We had an extended discussion regarding her long history of menorrhagia with secondary anemia due to chronic blood loss as well as uterine fibroids. The patient has no desire for future childbearing and would very much like to proceed with hysterectomy and ovarian preservation. We discussed the different options for hysterectomy and the patient would like to proceed with a total laparoscopic hysterectomy and bilateral salpingectomy with ovarian preservation. She presents today for her scheduled surgery. Surgeon: Jose Donnelly Education Adviser: Sherrill Nicole Operative Notes Findings: The lower anterior abdominal wall is involved with extensive omental adhesions. These extend from the right lower quadrant all the way across to the left lower quadrant. At the initiation of the case, the uterus itself could barely be visualized because of the adhesions which were taken down so as to adequately expose the pelvis for hysterectomy. The uterus is enlarged to about 14 week size and is multiple myomatous. Aside from some involvement with the adhesions, the ovaries and tubes appear to be unremarkable. The serosa of the uterus has multiple blebs containing clear straw-colored fluid highly suggestive of adenomyosis. Multiple fibroids were noted distorting the contours of the uterus with the largest being a left broad ligament myoma measuring at least 6-7 cm in diameter. The remainder of the fibroids were smaller and all appeared to be typical benign leiomyomata. The upper abdomen is normal to laparoscopic inspection. Closure Type: primary Specimen(s): left tube, right tube and uterus Applied: catheter Estimated blood loss (mL): 175 Blood products transfused: none Procedure in detail: With the patient under satisfactory general anesthesia in the modified dorsal lithotomy position, the perineum, vagina, and abdomen were prepped and draped in the usual manner for TLH. A pre-surgical safety time-out was then taken in accordance with [facility] OR protocols. A bivalve speculum was then inserted in the vagina and the anterior lip of the cervix grasped with a single-tooth tenaculum. A transfixing stitch of 1. PDS was then placed through the anterior and posterior lips of the cervix to be used for subsequent retrieval of the uterus vaginally. The cervix was then dilated so as to allow insertion of a VC are uterine manipulator with a medium cup. Once the VC are manipulator was in place, the speculum and tenaculum were removed and preparations made for laparoscopy. The umbilicus was infiltrated with 0.25% Marcaine with epinephrine and a 1 cm vertical incision was made in the inferior edge of the umbilicus. A varies needle was then used to insufflate the abdomen with carbon dioxide and once insufflated, a 5 mm trocar and sleeve were placed through the incision into the abdominal cavity. Correct placement of the sleeve was assured by direct visualization of intra-abdominal contents. A 2nd and 3rd 5 mm port were then placed in the left and right mid quadrants using a similar technique after infiltration with Marcaine with epinephrine. Using a 3 puncture technique with the patient in steep Trendelenburg, the pelvis and abdomen were visualized with the findings as noted above. The adhesions found in the lower abdomen were all sequentially lysed using the power Seal bipolar device and each pedicle thusly created, was hemostatic. Sharp and blunt dissection of all the pelvic adhesions was then accomplished with careful avoidance of all underlying structures. The ureters were visualized throughout the course of the procedure and were away from the surgical field at all times. The distal tube on the left was then grasped with an atraumatic grasping forceps and elevated so as to be able to use the power Seal bipolar device to 1st coagulate and divide the fimbria ovarica followed by dissection across the mesosalpinx and amputation of the left tube at the cornua. The tube was then removed from the abdominal cavity through 1 of the 5 mm ports in attention turned to further dissection on the left side. The round ligament and utero-ovarian ligaments were then coagulated and divided with a power Seal device and at that point the broad ligament was filled with the uterine fibroid protruding into the broad ligament on the left. Sharp dissection of the anterior leaf of the broad ligament was then carried out with a power Seal device and to the extent possible, the posterior leaf of the broad ligament was also dissected free of the fibroid. A laparoscopic tenaculum was then used to elevate the fibroid and careful dissection of the fibroid out of the broad ligament was then accomplished with minimal bleeding. Removal of the fibroid was then accomplished by gradual dissection of the base of the fibroid so as to identify a pedicle which was then divided with use of a Aida loop. The excised fibroid was then placed in the upper abdomen for subsequent retrieval and attention focused on completing the dissection down the left side of the uterus and creating a bladder flap at the uterovaginal reflection. The dissection of the posterior peritoneum overlying the colpotomy cup was then accomplished with a power Seal device and the uterine vessels on the left side were coagulated and divided to complete the dissection on the left side. Attention was then turned to the right side. The distal tube was elevated with a grasping forceps and the fimbria ovarica was then coagulated and divided with a power Seal device. The dissection was carried across the mesosalpinx and the proximal tube was amputated. The right fallopian tube was then removed from the abdominal cavity through 1 of the 5 mm ports. The power Seal device was then used to coagulate and divide the utero-ovarian ligament on the right followed by the round and the dissection was carried down the lateral aspect of the uterus on the right-hand side to the level of the bladder flap and colpotomy cup. The adhesions and surrounding tissues were carefully dissected away from the lateral aspect of the uterus on the right-hand side and again all dissections were away from the ureter on the right as well as the left. The uterine vessels were then coagulated and divided on the right side and the remainder of the areolar tissue overlying the colpotomy cup or rendered hemostatic with the power Seal device and the bladder flap was easily completed. The posterior peritoneum behind the cervix was then opened using the power Seal device so as to complete the dissection circumferentially around the base of the cervix. A monopolar J-hook was then used to perform a circumferential colpotomy using the colpotomy cup as a guide. Once the cervix was completely detached from the vagina, attention was turned to removal of the uterus through the vagina. An Prosper specimen retrieval bag was then introduced through the vagina into the abdominal cavity and the uterus as well as the excised fibroid were placed in the bag for retrieval vaginally. The Prosper was brought out through the vagina and secured in place in the usual manner. The uterus was then morcellated within the containment bag and the excised uterus and fibroid were submitted along with the fallopian tubes is an aggregate specimen. The cuff was visualized vaginally and the right angle was grasped with 2 long Allis clamps. A iozedm-mj-zsayk of 0 Vicryl was then placed at both angles and the remainder of the vaginal cuff was closed with 0 Vicryl in ityakf-af-sljle stitches. The abdomen was then reinsufflated and the pelvis carefully inspected. There was no significant bleeding noted after thorough irrigation of the pelvis and careful inspection. 20 cc of ropivacaine were instilled into the pelvis and the pneumoperitoneum vented. The 5 mm sleeves were then removed from the abdominal wall and the laparoscopy port incisions were closed with 4-0 Monocryl using inverted interrupted stitches periods skin glue was applied followed by appropriate dressings. The patient was then awakened from anesthesia and transported to the PACU for a period of observation and recovery after having tolerated the procedure well. Complications: none Post-operative Condition: stable Disposition: PACU Plan for aftercare: Routine postoperative care with follow-up planned for 2 weeks postop
[2024-01-25] MEDS: hydrOXYzine 50 MG/ML INJ 25 MG IM (14:55)
[2024-01-25] MEDS: fentaNYL 100 MCG/2 ML INJ IV ×2 (14:55→15:07)
[2024-01-25] MEDS: ONDANSETRON 4 MG/2 ML INJ IV (15:17)
[2024-01-25] MEDS: HYDROMORPHONE 1 MG INJ IV ×2 (15:17→20:44)
[2024-01-25] MEDS: OXYCODONE IR 5 MG TABLET PO (15:26)
[2024-01-25] MEDS: KETOROLAC 30 MG/ML VIAL IV ×2 (16:14→20:43)
--- NOTE | 2024-01-25 16:35 | PC.NURSE ---
Pt to room 211 via bed from PACU. Pt oriented to room, call light, bed controls, and tv controls. IVF as ordered. SCD's on and running. Bed alarm on for safety. Pt agrees to call for assistance as needed and to not get out of bed without staff assistance. Spouse Alexei is at the bedside.
[2024-01-25] MEDS: OXYCODONE IR 5 MG TABLET 10 MG PO ×2 (18:04→23:29)
[2024-01-25] MEDS: ACETAMINOPHEN 325 MG TABLET 650 MG PO ×2 (18:04→23:29)
[2024-01-25] MEDS: SIMETHICONE 80 MG TABLET 160 MG PO (21:53)
[2024-01-26 00:02] VITALS: BP 123/72; PULSE 104; RESP 16; TEMP 38; O2SAT 98
[2024-01-26] MEDS: LACTATED RINGERS 1,000 ML 100 ML IV (01:51)
[2024-01-26 02:20] VITALS: TEMP 36.9
[2024-01-26] MEDS: KETOROLAC 30 MG/ML VIAL IV ×2 (04:09→09:43)
[2024-01-26] MEDS: HYDROMORPHONE 1 MG INJ IV (04:10)
[2024-01-26 04:33] LABS: Add Manual Diff / Slide Review NO; Basophils Absolute Auto 100 /uL (0-100); Basophils Percent Auto 1.1 % (0-2); Eosinophils Absolute Auto 0 /uL (0-450); Eosinophils Percent Auto 0.1 % (2-4); Hematocrit 25.5 % (36-46); Hemoglobin 7.9 g/dL (12.0-16.0); Lymphocytes Absolute Auto 1200 /uL (1100-4500); Lymphocytes Percent Auto 8.7 % (25-40); Mean Corpuscular HGB Conc 30.9 % (30-36); Mean Corpuscular Hemoglobin 21.3 PG (26-34); Mean Corpuscular Volume 69.1 fL (80-100); Monocytes Absolute Auto 1000 /uL (0-900); Monocytes Percent Auto 7.2 % (3-14); Neutrophils Absolute Auto 11200 /uL (1500-7000); Neutrophils Percent Auto 82.9 % (50-75); Platelet Count 437 X10^3/uL (150-400); Red Blood Cell Count 3.69 X10^6/uL (4.0-5.2); Red Cell Distribution Width 18.8 % (11.6-14.8); White Blood Cell Count 13.5 X10^3/uL (4.5-11.0)
[2024-01-26] MEDS: ACETAMINOPHEN 325 MG TABLET 650 MG PO ×2 (06:02→12:00)
[2024-01-26] MEDS: OXYCODONE IR 5 MG TABLET 10 MG PO ×2 (06:03→10:37)
[2024-01-26 07:00] LABS: Anisocytosis 2+; Microcytosis 1+
[2024-01-26 08:13] VITALS: BP 113/61; PULSE 82
[2024-01-26 11:23] LABS: Hematocrit 24.2 % (36-46); Hemoglobin 7.6 g/dL (12.0-16.0)
--- NOTE | 2024-01-26 12:39 | PM.DS.1 ---
History of Present Illness History of Present Illness Date Patient Seen: 01/26/24 Time Patient Seen: 12:39 Chief complaint: Menorrhagia, Uterine fibroids, chronic pelvic pain Narrative: Patient is a 43-year-old , LMP 12/05/2023, who presents with a greater than 10 year history of progressively severe menorrhagia associated with the presence of fibroids. The patient experienced menarche at age 14 and has had regular predictable periods throughout her adult life but over the last 10 years her interval between periods is narrowed to 20-24 days with flow lasting 7-12 days with each cycle. This has resulted in anemia for which she has required iron infusions in the past. Her last H&H was ?a while ago? but she is seeing her primary care provider in the next week and will have 1 performed at that time. Paps have always been normal with her most recent in 2021. Patient's menses are not only heavy but associated with large clots and she has a sense of pelvic pressure, difficulty passing bowel movements, and deep dyspareunia. In addition she has a sense of being bloated on a continuous basis. She denies intermenstrual spotting. Endometrial sampling performed in early December 2023 showed only secretory endometrium without atypia, hyperplasia, or neoplasia. Pap was in 2021 and was normal. Her most recent pelvic ultrasound shows: FINDINGS: Uterus: Uterus is anteverted and measures 12.2 x 7.3 x 11.8 cm. The myometrium is heterogeneous. The endometrium the endometrium is not visualized due to multiple uterine fibroids. Uterine fibroids include: 1. Right posterior intramural 5.4 x 6.0 x 5.9 cm (previously measured 3.9 x 3.0 x 3.9 cm. 2. Left posterior intramural 6.5 x 6.1 x 5.4 cm (previously measured 5.8 x 6.2 x 5.0 cm) 3. Midline posterior submucosal 1.4 x 1.6 x 1.2 cm 4. Midline anterior intramural 2.5 x 2.4 x 1.5 cm Ovaries: The ovaries are not visualized. Other: No pathologic free abdominal or pelvic fluid. IMPRESSION: 1. Fibroid uterus. Fibroids that were previously visualized appear larger in size when compared with the study dated November 04, 2021. 2 additional fibroids are visualized which were not documented on the prior study. We had an extended discussion regarding her long history of menorrhagia with secondary anemia due to chronic blood loss as well as uterine fibroids. The patient has no desire for future childbearing and would very much like to proceed with hysterectomy and ovarian preservation. We discussed the different options for hysterectomy and the patient would like to proceed with a total laparoscopic hysterectomy and bilateral salpingectomy with ovarian preservation. She presents now for her scheduled surgery. Discharge Providers Provider Date of admission: 01/25/2024 Discharge Date: 01/26/24 Primary care physician: Jennie Sweet DO Discharge provider: Jose Donnelly MD Summary Hospital Course Discharge Diagnosis: Menorrhagia Uterine fibroids Chronic pelvic pain Extensive abdominopelvic adhesions Anemia due to chronic blood loss Status post total laparoscopic hysterectomy with bilateral salpingectomy and lysis of adhesions Hospital Course: Julia was admitted on 01/25/2024 and underwent an uneventful but complicated total laparoscopic hysterectomy with bilateral salpingectomy and extensive lysis of adhesions. Full details of the procedure well summarized on my operative note of that date. Following her surgery, the patient has done extremely well with prompt return of bowel and bladder function, she is ambulating independently, tolerating a regular diet, and her pain is well controlled with oral pain medications. She will be discharged at this time to home in an afebrile normotensive condition after counseling regarding precautionary symptoms, limitations of activity, medications, and plans for follow-up which will be in 2 weeks. Medications at discharge will include resumption of all preadmission medications as well as oxycodone 5 mg every 6 hours as needed for pain, dispensed 20 with no refills, and Cipro 500 mg p.o. b.i.d. x5 days for UTI prophylaxis following catheterization. In addition the patient will be taking iron supplement daily along with vitamin-C for the next 60 days to restore her marrow stores of iron. Status at Discharge Cognitive/behavioral status at discharge: oriented Functional status at discharge: independent ambulation Overall status at discharge: patient is progressing back to baseline Time Spent with Patient Time spent: Less than 30 minutes Exam Vital Signs (past 8 hours): - 01/26/24 08:13 Pulse Rate 82 Blood Pressure 113/61 Oxygen Delivery Method Nasal Cannula Oxygen Flow Rate 0 Const General: cooperative and comfortable Nutritional Appearance: average body habitus Orientation: alert and oriented x3 HENMT Head: normal to inspection, atraumatic and abrasion Ears: hearing grossly normal bilaterally Face and sinus: face symmetric Eyes General: appearance normal, both eyes and all related structures Conjunctivae: conjunctivae normal Sclera: sclerae normal EOM: EOM intact bilaterally Neck Neck: normal visual inspection Resp Effort & Inspection: normal respiratory effort and able to speak in complete sentences Auscultation: clear to auscultation bilaterally Cardio Rate: regular rate Rhythm: regular rhythm Heart Sounds: S1 normal, S2 normal and no murmurs GI Inspection: normal to inspection and incision (Surgical dressings clean and dry) Palpation: soft, no hepatosplenomegaly and tender (Mild, diffuse postsurgical tenderness) External Female Exam: other (No significant bleeding noted) Extrem General: no calf tenderness Psych Appearance: grossly normal Mental Status: mental status grossly normal Speech and Movement: speech and movement normal Mood: congruent mood Affect: normal affect Attitude: cooperative Thought Process: normal Thought Content: normal Judgment: judgment good Objective Labs 01/26/24 11:20 Labs: Laboratory Results - last 24 hr 01/25/24 01/26/24 04:02 11:20 WBC 13.5 H RBC 3.69 L Hgb 7.9 L 7.6 L Hct 25.5 L 24.2 L MCV 69.1 L MCH 21.3 L MCHC 30.9 RDW 18.8 H Plt Count 437 H Neut % (Auto) 82.9 H Lymph % (Auto) 8.7 L Hamilton % (Auto) 7.2 Eos % (Auto) 0.1 L Baso % (Auto) 1.1 Neut # (Auto) 61161 H Lymph # (Auto) 1200 Hamilton # (Auto) 1000 H Eos # (Auto) 0 Baso # (Auto) 100 RBC Morphology See below Anisocytosis 2+ H Microcytosis 1+ H PFSH Medical History (Updated 10/06/23 @ 12:30 by Jennie Sweet DO) Nystagmus of left eye Cerebrospinal fluid leak Shoulder pain Foot pain Chronic back pain (~11/2014) Vertigo Painful menstrual periods Stroke Migraines History of frequent headaches Arnold-Chiari malformation, type I (10/25/16) Surgical History Anesthesia History of Chiari malformation (~07/10/14) History of third molar tooth extraction Status post breast reduction (~2014) Status post appendectomy Family History Child Age: 20 Asthma Father Age: 62 Parkinsons AA (alcohol abuse) Mother Age: 63 Hepatitis B infection without delta agent without hepatic coma, unspecified chronicity Grandmother No problems noted. Social History household members: significant other Smoking Status: Never smoker alcohol intake: former Discharge Assessment & Plan Assessment and Plan Assessment: Menorrhagia Uterine fibroids Chronic pelvic pain Extensive abdominopelvic adhesions Anemia due to chronic blood loss Status post total laparoscopic hysterectomy with bilateral salpingectomy and lysis of adhesions Plan of Treatment: Routine postoperative care. Daily iron and vitamin-C supplementation times 60 days Prescriptions as written Follow-up in 2 weeks for her postop visit. Discharge Plan Discharge Plan Patient Disposition: Home Provider Discharge Comment: Please review the written instructions you received when you were discharged from the hospital. Your follow-up appointment is scheduled for 2 weeks after your surgery and I look forward to seeing you then. If however in the meanwhile you have any issues, concerns, or questions, please contact me either through the office phone at [phone], or via the patient portal. Discharge orders & Medications Discharge Orders: Discharge (Order); Ordered 01/26/24 Ordered By: Jose Donnelly Prescriptions: New ciprofloxacin HCl [Cipro] 500 mg tablet 500 mg PO BID 5 Days Qty: 10 0RF oxycodone 5 mg tablet 5 mg PO Q6H PRN (Reason: pain) Qty: 20 0RF Continued methocarbamol 500 mg tablet 250 - 500 mg PO QD-TID PRN (Reason: Muscle Spasm) nortriptyline 25 mg capsule 25 mg PO BEDTIME escitalopram oxalate 10 mg tablet See Rx Instructions .ROUTE .COMPLEX Qty: 90 0RF Dose Instruction: Take 1 tablet by mouth once daily Rx Instructions: Take 1 tablet by mouth once daily tramadol 50 mg tablet 50 mg PO BID PRN (Reason: pain) Qty: 60 2RF Rx Instructions: Caution re nortriptyline Follow up/Referrals: Jennie Sweet DO [Primary Care Provider] - Jose Donnelly MD [Physician] - Diet/Activity/Treatments Diet: Diet as Tolerated Activity: As tolerated Other treatments: [id number] Tylenol and/or ibuprofen may be used for additional pain relief. [id number] stool softeners and/or MiraLax may be used as needed for constipation. Skin/Wound/Dressing Care Report to your healthcare provider any signs of infection, such as:: chills, fever, increased pain, unusual drainage and unusual redness Dressing: Dressings should be removed on the morning of 01/27/2024 Visit Report/Discharge Packet Instructions: DI for Hysterectomy, DI for Laparoscopy, DI for Prescription Opioid Use Print Language: Mozambican Discharge Data Primary Care Provider: Jennie Sweet Attending Provider: Jose Donnelly
--- NOTE | 2024-01-26 14:32 | CM.DANOTE ---
Initial DCP Assessment Visit Note Reviewed EMR and team rounds for pt's medical status and updates. Did not meet with pt f/f due to her having discharged from the building prior to this SECURITY INSTALLATION TECHNICIAN's ability to meet with her. Pt is independent at baseline, resides with her life partner in their own home in [place]. Payor: [employer] Medicare Attending: Dr. Donnelly Pt is a 43 year-old F placed in [facility] bed following her planned total laparoscopic hysterectomy and bilateral salpingectomy and lysis of adhesions. She has a PMH of 10+ years difficulty with severe, long-lasting periods due to fibroids, Her most recent ultrasound showed that the fibroids have increased in size, and pt experiences chronic anemia due to excessive bleeding. Plan was made for surgery, which was completed yesterday. Pt already has a post-op f/u appt. with Dr. Donnelly scheduled. No needs were identified for d/c planning assistance during this admission. Discharge Planning/Care Management CM Discharge Assessment Start: 01/26/24 14:29 Freq: Status: Active Protocol: Document 01/26/24 14:29 DPL (Rec: 01/26/24 14:31 DPL [id number]) Discharge Planning Assessment Assigned Shoe Worker BENSON Guy Advance Directives? No History Provided By Medical Record Expected Length of Stay 1 Prior Living Arrangements House Household Members significant other Type of transporation used prior to Drives own vehicle admit Independent with ADL's Yes Is patient alert and oriented? Yes Comment N/A Caregiver for Another No Comment No identified home d/c needs identified during this admission. 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 No Cardiac Clearance Received Not Applicable Urinary Catheter Present No Hx Urinary Self Catheterization No Diabetes No Patient No Lactating No Received a COVID vaccine? Yes Marital Status Single Support System Significant Other Patient Discharge Plan Description Return Home Advance Directives? No
== END 2024-01-26 13:50 | disposition home or self-care (01) ==
LOC: OR 10:47 → AC 15:21
PROVIDERS: PCP Family Medicine; Referring Provider Obstetrics & Gynecology; Visit Provider Obstetrics & Gynecology
PROC: 0UT94ZZ Resection of Uterus, Percutaneous Endoscopic Approach (ICD-10-PCS; CPT 58571; principal; 2024-01-25 10:15)
DX: D25.9 Leiomyoma of uterus, unspecified (principal); N92.0 Excessive and frequent menstruation with regular cycle; N73.6 Female pelvic peritoneal adhesions (postinfective); N72 Inflammatory disease of cervix uteri; N83.8 Other noninflammatory disorders of ovary, fallopian tube and broad ligament
CPT/HCPCS: 58571; 85014; 85018; 85025; J0171; J0690; J1100; J1170; J1885; J2250; J2405; J2704; J2795; J3010; J3410

== ENCOUNTER → 2024-03-05 14:29 | Outpatient (CLI) | payer MEDICARE, SELFPAY ==
[2024-01-25 15:53] VITALS: BMI 27.4
--- NOTE | 2024-03-05 | DI.MG.S_ITS ---
BILATERAL DIGITAL SCREENING MAMMOGRAM 3D/2D WITH CAD: 03/05/2024 CLINICAL: Routine screening. Family history of breast cancer. Comparison is made to exams dated: 01/24/2023 mammogram, 01/18/2022 mammogram, and 10/03/2019 mammogram - [facility]. Both breasts are extremely dense, which lowers the sensitivity of mammography (category d />75% glandular tissue). Current study was also evaluated with a Computer Aided Detection (CAD) system. There are benign calcifications in both breasts. There also are benign post operative findings in both breasts. No significant masses, calcifications, or other findings are seen in either breast. There has been no significant interval change. IMPRESSION: BENIGN There is no mammographic evidence of malignancy. A 1 year screening mammogram is recommended. Based on the Tyrer Cuzick model (a risk assessment model) the patient's lifetime risk is 11.8% and her 10 year risk is 1.8%. According to the ACR, ACS, and NCCN guidelines, an annual breast MRI exam along with mammogram is recommended if the patient's lifetime risk is 20% or greater. This exam was interpreted at Station ID: [id number]. NOTE: For mammograms, a report in lay terms will be sent to the patient. Approximately 15% of breast malignancies will not be visualized mammographically. In the management of a palpable breast mass, a negative mammogram must not discourage biopsy of a clinically suspicious lesion. Electronically Signed By: Marj baxter/lina:03/05/2024 16:39:52 letter sent: Normal Exam ACR BI-RADS Category 2: Benign Finding(s) [id number]
== END ==
PROVIDERS: PCP Family Medicine; Referring Provider Family Medicine; Visit Provider Family Medicine
DX: Z12.31 Encounter for screening mammogram for malignant neoplasm of breast (principal); Z80.3 Family history of malignant neoplasm of breast; R92.343 Mammographic extreme density, bilateral breasts
CPT/HCPCS: 77063; 77067

== ENCOUNTER → 2024-04-05 15:58 | Outpatient (CLI) | payer MEDICARE, MEDICAID, SELFPAY ==
[2024-01-25 15:53] VITALS: BMI 27.4
[2024-04-05 16:58] LABS: Add Manual Diff / Slide Review NO; Basophils Absolute Auto 0 /uL (0-100); Basophils Percent Auto 0.4 % (0-2); Eosinophils Absolute Auto 100 /uL (0-450); Eosinophils Percent Auto 1.4 % (2-4); Hematocrit 28.7 % (36-46); Lymphocytes Absolute Auto 2200 /uL (1100-4500); Lymphocytes Percent Auto 26.1 % (25-40); Mean Corpuscular HGB Conc 31.3 % (30-36); Mean Corpuscular Hemoglobin 20.6 PG (26-34); Mean Corpuscular Volume 65.7 fL (80-100); Monocytes Absolute Auto 700 /uL (0-900); Monocytes Percent Auto 8.4 % (3-14); Neutrophils Absolute Auto 5400 /uL (1500-7000); Neutrophils Percent Auto 63.7 % (50-75); Platelet Count 393 X10^3/uL (150-400); Red Blood Cell Count 4.36 X10^6/uL (4.0-5.2); Red Cell Distribution Width 20.6 % (11.6-14.8); White Blood Cell Count 8.5 X10^3/uL (4.5-11.0)
[2024-04-05 18:18] LABS: Ferritin 4 ng/mL (6-137)
[2024-04-05 18:28] LABS: Anisocytosis 1+; Microcytosis 2+
== END ==
PROVIDERS: PCP Family Medicine; Referring Provider Family Medicine; Visit Provider Family Medicine
DX: D62 Acute posthemorrhagic anemia (principal)
CPT/HCPCS: 36415; 82728; 85025

== ENCOUNTER → 2024-07-17 10:43 | Outpatient (CLI) | payer MEDICARE, MEDICAID, SELFPAY ==
[2024-01-25 15:53] VITALS: BMI 27.4
[2024-07-17 11:48] LABS: Add Manual Diff / Slide Review NO; Basophils Absolute Auto 0 /uL (0-100); Basophils Percent Auto 0.5 % (0-2); Eosinophils Absolute Auto 100 /uL (0-450); Eosinophils Percent Auto 1.2 % (2-4); Hematocrit 37.2 % (36-46); Hemoglobin 12.5 g/dL (12.0-16.0); Lymphocytes Absolute Auto 1900 /uL (1100-4500); Lymphocytes Percent Auto 23.7 % (25-40); Mean Corpuscular HGB Conc 33.6 % (30-36); Mean Corpuscular Hemoglobin 26.7 PG (26-34); Mean Corpuscular Volume 79.4 fL (80-100); Monocytes Absolute Auto 500 /uL (0-900); Monocytes Percent Auto 6.3 % (3-14); Neutrophils Absolute Auto 5400 /uL (1500-7000); Neutrophils Percent Auto 68.3 % (50-75); Platelet Count 301 X10^3/uL (150-400); Red Blood Cell Count 4.69 X10^6/uL (4.0-5.2); Red Cell Distribution Width 22.7 % (11.6-14.8); White Blood Cell Count 7.9 X10^3/uL (4.5-11.0)
[2024-07-17 11:58] LABS: Anisocytosis 2+
[2024-07-17 12:45] LABS: HEMOLYSIS < 15 (0-50); Iron 72 ug/dL (37-170)
[2024-07-17 12:48] LABS: Alanine Aminotransferase 13 IU/L (<35); Albumin 4.4 g/dL (3.5-5.0); Albumin Globulin Ratio 1.8 (1.0-2.8); Alkaline Phosphatase 62 U/L (38-126); Aspartate Aminotransferase 18 IU/L (14-36); BUN Creatinine Ratio 18.6 (6-22); Bilirubin Total 0.6 mg/dL (0.2-1.3); Blood Urea Nitrogen 13 mg/dL (7-17); Calcium 9.6 mg/dL (8.4-10.2); Carbon Dioxide 21 mmol/L (22-32); Chloride 104 mmol/L (98-107); Estimated Glomerular Filt Rate > 60 mL/min (>60); Globulin 2.4 g/dL (1.7-4.1); Glucose 110 mg/dL (70-100); HEMOLYSIS 20 (0-50); Potassium 4.1 mmol/L (3.4-5.1); Sodium 137 mmol/L (137-145); Total Protein 6.8 g/dL (6.3-8.2)
[2024-07-17 12:57] LABS: Percent Iron Saturation 22 % (15-50); Total Iron Binding Capacity 321 ug/dL (265-497); Transferrin 262 mg/dL (206-381)
[2024-07-17 13:18] LABS: Ferritin 92 ng/mL (6-137)
== END ==
PROVIDERS: PCP Family Medicine; Referring Provider Family Medicine; Visit Provider Family Medicine
DX: D50.9 Iron deficiency anemia, unspecified (principal)
CPT/HCPCS: 36415; 80053; 82728; 83540; 83550; 85025

== ENCOUNTER → 2025-01-06 12:24 | Outpatient (CLI) | payer MEDICARE, MEDICAID, SELFPAY ==
[2024-01-25 15:53] VITALS: BMI 27.4
[2025-01-06 13:45] LABS: Add Manual Diff / Slide Review NO; Basophils Absolute Auto 100 /uL (0-100); Basophils Percent Auto 0.5 % (0-2); Eosinophils Absolute Auto 100 /uL (0-450); Eosinophils Percent Auto 0.9 % (2-4); Hematocrit 38.9 % (36-46); Hemoglobin 13.2 g/dL (12.0-16.0); Lymphocytes Absolute Auto 2000 /uL (1100-4500); Lymphocytes Percent Auto 20.7 % (25-40); Mean Corpuscular HGB Conc 33.8 % (30-36); Mean Corpuscular Volume 85.9 fL (80-100); Monocytes Absolute Auto 700 /uL (0-900); Monocytes Percent Auto 7.5 % (3-14); Neutrophils Absolute Auto 6800 /uL (1500-7000); Neutrophils Percent Auto 70.4 % (50-75); Platelet Count 304 X10^3/uL (150-400); Red Blood Cell Count 4.53 X10^6/uL (4.0-5.2); Red Cell Distribution Width 12.6 % (11.6-14.8); White Blood Cell Count 9.7 X10^3/uL (4.5-11.0)
[2025-01-06 14:03] LABS: Alanine Aminotransferase 18 IU/L (<35); Albumin 4.5 g/dL (3.5-5.0); Albumin Globulin Ratio 1.7 (1.0-2.8); Alkaline Phosphatase 59 U/L (38-126); Aspartate Aminotransferase 20 IU/L (14-36); BUN Creatinine Ratio 15.1 (6-22); Bilirubin Total 0.9 mg/dL (0.2-1.3); Blood Urea Nitrogen 11 mg/dL (7-17); Calcium 9.5 mg/dL (8.4-10.2); Carbon Dioxide 21 mmol/L (22-32); Chloride 105 mmol/L (98-107); Estimated Glomerular Filt Rate > 60 mL/min (>60); Globulin 2.6 g/dL (1.7-4.1); Glucose 110 mg/dL (70-100); HEMOLYSIS < 15 (0-50); Potassium 4.4 mmol/L (3.4-5.1); Sodium 137 mmol/L (137-145); Total Protein 7.1 g/dL (6.3-8.2)
== END ==
PROVIDERS: PCP Family Medicine; Referring Provider Family Medicine; Visit Provider Family Medicine
DX: R42 Dizziness and giddiness (principal)
CPT/HCPCS: 36415; 80053; 85025

== ENCOUNTER 2025-08-26 20:01 | Emergency (ER) | payer MEDICARE, MEDICAID, SELFPAY ==
[2024-01-25 15:53] VITALS: BMI 27.4
[2025-08-26] VITALS (12 sets, daily range): BP systolic 107–157; BP diastolic 60–81; PULSE 80–103; RESP 12–19; TEMP 36.3; O2SAT 94–100; BMI 26.5
[2025-08-26 20:41] LABS: Add Manual Diff / Slide Review NO; Hematocrit 40.7 % (36-46); Hemoglobin 13.9 g/dL (12.0-16.0); Lymphocytes Absolute Auto 1200 /uL (1100-4500); Mean Corpuscular HGB Conc 34.2 % (30-36); Mean Corpuscular Hemoglobin 29.3 PG (26-34); Mean Corpuscular Volume 85.9 fL (80-100); Platelet Count 345 X10^3/uL (150-400)
[2025-08-26 20:51] LABS: Alanine Aminotransferase 15 IU/L (<35); Albumin 4.8 g/dL (3.5-5.0); Albumin Globulin Ratio 1.4 (1.0-2.8); Alkaline Phosphatase 65 U/L (38-126); Blood Urea Nitrogen 9 mg/dL (7-17); Calcium 9.3 mg/dL (8.4-10.2); Carbon Dioxide 21 mmol/L (22-32); Chloride 106 mmol/L (98-107); Estimated Glomerular Filt Rate > 60 mL/min (>60); Globulin 3.5 g/dL (1.7-4.1); Glucose 117 mg/dL (70-99); HEMOLYSIS 18 (0-50); Lipase 35 U/L (23-300); Potassium 4.0 mmol/L (3.4-5.1); Sodium 137 mmol/L (137-145); Total Protein 8.3 g/dL (6.3-8.2)
[2025-08-26] MEDS: ONDANSETRON 4 MG/2 ML INJ IV (21:10)
--- NOTE | 2025-08-26 21:31 | ED.ABDPAIN ---
HPI - Abdominal Pain <Contsantin Jones MD - Last Filed: 09/08/25 15:38> General Chief Complaint: Abdominal Pain Stated Complaint: L thigh and Back pain, pn with urination Time Seen by Provider: 08/26/25 21:23 Source: patient Mode of arrival: Ambulatory History of Present Illness HPI narrative: 44-year-old female patient with a history of Chiari malformation who complains of severe left flank pain radiating to the left lower quadrant and groin since last night. No history of kidney stones. She has had no fever, chills or dysuria. She can not get comfortable. Nausea but no vomiting or diarrhea. Nauseous from the pain. Related Data Home Medications ?Medication ?Instructions ?Recorded ?Confirmed methocarbamol 500 mg tablet 250 - 500 mg PO QD-TID PRN Muscle 07/07/23 08/27/25 Spasm nortriptyline 25 mg capsule 25 mg PO BEDTIME 10/06/23 08/27/25 Previous Rx's ?Medication ?Instructions ?Recorded propranolol 20 mg tablet 10 mg (1/2 x 20 mg) PO BID PRN 07/17/24 anxiety #30 tabs escitalopram oxalate 10 mg tablet 10 mg PO .morning #90 tabs 06/25/25 progesterone micronized 100 mg 100 mg PO BEDTIME #90 caps 06/25/25 capsule tramadol 50 mg tablet 50 mg PO BID PRN pain #60 tabs 06/25/25 oxycodone 5 mg tablet 5 mg PO Q6H PRN pain #10 tabs 08/27/25 sennosides 8.6 mg tablet (senna) 8.6 mg PO BEDTIME PRN constipation 08/27/25 #10 tabs Allergies Allergy/AdvReac Type Severity Reaction Status Date / Time baclofen (BACLOFEN) AdvReac Mild ANXIETY Verified 08/27/25 11:30 AND SLUGGISHNESS Review of Systems <Constantin Jones MD - Last Filed: 09/08/25 15:38> Review of Systems ROS Unobtainable: All systems reviewed & are unremarkable except as noted in HPI and below Gastrointestinal Gastrointestinal: Reports as per HPI Genitourinary Genitourinary: Reports as per HPI Patient History <Constantin Jones MD - Last Filed: 09/08/25 15:38> Medical History (Updated 08/27/25 @ 00:16 by Kian Gray MD) Fibroids Menorrhagia with regular cycle Fibrocystic breast disease (FCBD) in female (03/06/17) Nystagmus of left eye Cerebrospinal fluid leak Shoulder pain Foot pain Chronic back pain (~11/2014) Vertigo Painful menstrual periods Stroke Migraines History of frequent headaches Arnold-Chiari malformation, type I (2013) Surgical History Anesthesia History of Chiari malformation (~07/10/14) History of third molar tooth extraction Status post breast reduction (~2014) Status post appendectomy Family History Child Age: 21 Asthma Father Age: 63 Parkinsons AA (alcohol abuse) Mother Age: 64 Hepatitis B infection without delta agent without hepatic coma, unspecified chronicity Grandmother No problems noted. Social History household members: significant other alcohol intake: former Smoking Status: Never smoker alcohol intake frequency: 0-2 drinks per day Exam <Constantin Jones MD - Last Filed: 09/08/25 15:38> Narrative Exam Narrative: General: Alert and conversant. Moderate distress. Appears well nourished and well hydrated Lungs: Clear to auscultation with good air movement. No wheezing, rales or rhonchi. No respiratory distress Abdomen: Soft, nontender with no distention or masses. Normal bowel sounds. No rebound or guarding Musculoskeletal: Exam of the extremities, axial spine and ribcage reveals no deformity, bony tenderness or swelling. Range of motion intact Neuro: Alert and oriented. Cranial nerves, motor, sensory and cerebellar all grossly intact. No focal deficit Skin: Warm and normal color. No rashes Psychological: Normal affect and interaction. No evidence of delusion or psychosis. Normal mood. Initial Vital Signs Initial Vital Signs: Vital Signs Temperature 97.4 F L 08/26/25 20:08 Pulse Rate 103 H 08/26/25 20:08 Respiratory Rate 16 08/26/25 20:08 Blood Pressure 131/73 08/26/25 20:08 Pulse Oximetry 99 08/26/25 20:08 Oxygen Delivery Method Room Air 08/26/25 20:08 <Kian Gray MD - Last Filed: 08/27/25 02:46> Initial Vital Signs Initial Vital Signs: Vital Signs Temperature 97.4 F L 08/26/25 20:08 Pulse Rate 103 H 08/26/25 20:08 Respiratory Rate 16 08/26/25 20:08 Blood Pressure 131/73 08/26/25 20:08 Pulse Oximetry 99 08/26/25 20:08 Oxygen Delivery Method Room Air 08/26/25 20:08 Course <Constantin Jones MD - Last Filed: 09/08/25 15:38> Orders Ordered: Discontinued Medications Hydrocodone Bitart/Acetaminophen (Hydrocodone/Acet 5/325 Prepack) 1 bottle MISC DIRECTED ONE Stop: 08/27/25 00:29 Last Admin: 08/27/25 00:48 Dose: 1 bottle Documented By: JYOTI Hydrocodone Bitart/Acetaminophen (Hydrocodone/Acet 5/325 Tablet) 1 tab PO NOW ONE Stop: 08/27/25 00:29 Last Admin: 08/27/25 00:48 Dose: 1 tab Documented By: JYOTI Hydromorphone HCl (Hydromorphone 1 Mg/Ml Syringe) 1 mg IV NOW ONE Stop: 08/26/25 21:33 Last Admin: 08/26/25 21:48 Dose: 1 mg Documented By: PETE Hydromorphone HCl (Hydromorphone Hcl 0.5 Mg/0.5 Ml Syringe) 0.5 mg IV NOW ONE Stop: 08/26/25 23:42 Last Admin: 08/27/25 00:14 Dose: 0.5 mg Documented By: JYOTI Sodium Chloride (Normal Saline 0.9%) 1,000 mls @ 150 mls/hr IV CONT PRACHI Last Infusion: 08/27/25 00:57 Dose: Infused Documented By: Admin: 08/26/25 21:47 Dose: 150 mls/hr Documented By: PETE Ketorolac Tromethamine (Ketorolac 30 Mg/Ml Vial) 30 mg IV NOW ONE Stop: 08/26/25 21:33 Last Admin: 08/26/25 21:48 Dose: 30 mg Documented By: PETE Ondansetron HCl (Ondansetron 4 Mg/2 Ml Inj) 4 mg IV NOW PRN PRN Reason: Nausea And Vomiting Last Admin: 08/26/25 21:10 Dose: 4 mg Documented By: PETE Ondansetron HCl (Ondansetron 4 Mg Odt) 4 mg PO NOW PRN PRN Reason: Nausea And Vomiting Ondansetron HCl (Ondansetron 4 Mg Odt Prepack) 1 bottle MISC DIRECTED ONE Stop: 08/27/25 00:38 Last Admin: 08/27/25 00:48 Dose: 1 bottle Documented By: JYOTI Tamsulosin HCl (Tamsulosin 0.4 Mg Capsule) 0.4 mg PO NOW ONE Stop: 08/26/25 21:33 Last Admin: 08/26/25 21:49 Dose: 0.4 mg Documented By: PETE Vital Signs Vital signs: Vital Signs - 8 hr 08/26/25 20:08 08/26/25 20:34 08/26/25 20:34 Temperature 97.4 F L Pulse Rate 103 H 90 Respiratory Rate 16 Blood Pressure 131/73 136/81 Pulse Oximetry 99 99 Oxygen Delivery Method Room Air 08/26/25 20:35 08/26/25 20:35 08/26/25 21:00 Temperature Pulse Rate 92 H 80 Respiratory Rate 17 Blood Pressure 118/62 Pulse Oximetry 98 97 Oxygen Delivery Method Room Air 08/26/25 21:00 08/26/25 21:30 08/26/25 21:31 Temperature Pulse Rate 98 H Respiratory Rate Blood Pressure 132/60 107/60 Pulse Oximetry 98 Oxygen Delivery Method 08/26/25 21:31 08/26/25 21:55 08/26/25 21:55 Temperature Pulse Rate 88 93 H Respiratory Rate 16 16 Blood Pressure 157/69 H Pulse Oximetry 100 100 Oxygen Delivery Method Room Air 08/26/25 22:00 08/26/25 22:00 08/26/25 22:30 Temperature Pulse Rate 90 90 Respiratory Rate 12 18 Blood Pressure 144/67 H Pulse Oximetry 94 97 Oxygen Delivery Method 08/26/25 22:41 08/26/25 22:41 08/26/25 23:00 Temperature Pulse Rate 91 H Respiratory Rate 14 Blood Pressure 131/60 128/69 Pulse Oximetry 96 Oxygen Delivery Method 08/26/25 23:00 08/26/25 23:30 08/26/25 23:30 Temperature Pulse Rate 97 H 85 Respiratory Rate 19 17 Blood Pressure 119/63 Pulse Oximetry 96 96 Oxygen Delivery Method Room Air 08/27/25 00:00 08/27/25 00:00 08/27/25 00:30 Temperature Pulse Rate 112 H 94 H Respiratory Rate 16 14 Blood Pressure 126/60 Pulse Oximetry 97 98 Oxygen Delivery Method Room Air Room Air 08/27/25 00:30 Temperature Pulse Rate Respiratory Rate Blood Pressure 124/65 Pulse Oximetry Oxygen Delivery Method <Kian Gray MD - Last Filed: 08/27/25 02:46> Orders Ordered: Discontinued Medications Hydrocodone Bitart/Acetaminophen (Hydrocodone/Acet 5/325 Prepack) 1 bottle MISC DIRECTED ONE Stop: 08/27/25 00:29 Last Admin: 08/27/25 00:48 Dose: 1 bottle Documented By: JYOTI Hydrocodone Bitart/Acetaminophen (Hydrocodone/Acet 5/325 Tablet) 1 tab PO NOW ONE Stop: 08/27/25 00:29 Last Admin: 08/27/25 00:48 Dose: 1 tab Documented By: JYOTI Hydromorphone HCl (Hydromorphone 1 Mg/Ml Syringe) 1 mg IV NOW ONE Stop: 08/26/25 21:33 Last Admin: 08/26/25 21:48 Dose: 1 mg Documented By: PETE Hydromorphone HCl (Hydromorphone Hcl 0.5 Mg/0.5 Ml Syringe) 0.5 mg IV NOW ONE Stop: 08/26/25 23:42 Last Admin: 08/27/25 00:14 Dose: 0.5 mg Documented By: JYOTI Sodium Chloride (Normal Saline 0.9%) 1,000 mls @ 150 mls/hr IV CONT PRACHI Last Infusion: 08/27/25 00:57 Dose: Infused Documented By: Admin: 08/26/25 21:47 Dose: 150 mls/hr Documented By: PETE Ketorolac Tromethamine (Ketorolac 30 Mg/Ml Vial) 30 mg IV NOW ONE Stop: 08/26/25 21:33 Last Admin: 08/26/25 21:48 Dose: 30 mg Documented By: PETE Ondansetron HCl (Ondansetron 4 Mg/2 Ml Inj) 4 mg IV NOW PRN PRN Reason: Nausea And Vomiting Last Admin: 08/26/25 21:10 Dose: 4 mg Documented By: PETE Ondansetron HCl (Ondansetron 4 Mg Odt) 4 mg PO NOW PRN PRN Reason: Nausea And Vomiting Ondansetron HCl (Ondansetron 4 Mg Odt Prepack) 1 bottle MISC DIRECTED ONE Stop: 08/27/25 00:38 Last Admin: 08/27/25 00:48 Dose: 1 bottle Documented By: JYOTI Tamsulosin HCl (Tamsulosin 0.4 Mg Capsule) 0.4 mg PO NOW ONE Stop: 08/26/25 21:33 Last Admin: 08/26/25 21:49 Dose: 0.4 mg Documented By: PETE Vital Signs Vital signs: Vital Signs - 8 hr 08/26/25 20:08 08/26/25 20:34 08/26/25 20:34 Temperature 97.4 F L Pulse Rate 103 H 90 Respiratory Rate 16 Blood Pressure 131/73 136/81 Pulse Oximetry 99 99 Oxygen Delivery Method Room Air 08/26/25 20:35 08/26/25 20:35 08/26/25 21:00 Temperature Pulse Rate 92 H 80 Respiratory Rate 17 Blood Pressure 118/62 Pulse Oximetry 98 97 Oxygen Delivery Method Room Air 08/26/25 21:00 08/26/25 21:30 08/26/25 21:31 Temperature Pulse Rate 98 H Respiratory Rate Blood Pressure 132/60 107/60 Pulse Oximetry 98 Oxygen Delivery Method 08/26/25 21:31 08/26/25 21:55 08/26/25 21:55 Temperature Pulse Rate 88 93 H Respiratory Rate 16 16 Blood Pressure 157/69 H Pulse Oximetry 100 100 Oxygen Delivery Method Room Air 08/26/25 22:00 08/26/25 22:00 08/26/25 22:30 Temperature Pulse Rate 90 90 Respiratory Rate 12 18 Blood Pressure 144/67 H Pulse Oximetry 94 97 Oxygen Delivery Method 08/26/25 22:41 08/26/25 22:41 08/26/25 23:00 Temperature Pulse Rate 91 H Respiratory Rate 14 Blood Pressure 131/60 128/69 Pulse Oximetry 96 Oxygen Delivery Method 08/26/25 23:00 08/26/25 23:30 08/26/25 23:30 Temperature Pulse Rate 97 H 85 Respiratory Rate 19 17 Blood Pressure 119/63 Pulse Oximetry 96 96 Oxygen Delivery Method Room Air 08/27/25 00:00 08/27/25 00:00 08/27/25 00:30 Temperature Pulse Rate 112 H 94 H Respiratory Rate 16 14 Blood Pressure 126/60 Pulse Oximetry 97 98 Oxygen Delivery Method Room Air Room Air 08/27/25 00:30 Temperature Pulse Rate Respiratory Rate Blood Pressure 124/65 Pulse Oximetry Oxygen Delivery Method MDM - Abdominal Pain <Constantin Jones MD - Last Filed: 09/08/25 15:38> Lab Data Attestation: I reviewed the patient's lab results. Lab results narrative: CBC, CMP and urinalysis unremarkable 08/26/25 20:28 08/26/25 20:28 Labs: Lab Results 08/26/25 08/26/25 Range/Units 20:15 20:28 WBC 10.2 (4.5-11.0) X10^3/uL RBC 4.74 (4.0-5.2) X10^6/uL Hgb 13.9 (12.0-16.0) g/dL Hct 40.7 (36-46) % MCV 85.9 (80-100) fL MCH 29.3 (26-34) PG MCHC 34.2 (30-36) % RDW 12.6 (11.6-14.8) % Plt Count 345 (150-400) X10^3/uL Neut % (Auto) 79.2 H (50-75) % Lymph % (Auto) 11.3 L (25-40) % [place] % (Auto) 7.4 (3-14) % Eos % (Auto) 1.2 L (2-4) % Baso % (Auto) 0.9 (0-2) % Neut # (Auto) 8000 H (7599-6028) /uL Lymph # (Auto) 1200 (0887-6262) /uL [place] # (Auto) 800 (0-900) /uL Eos # (Auto) 100 (0-450) /uL Baso # (Auto) 100 (0-100) /uL Sodium 137 (137-145) mmol/L Potassium 4.0 (3.4-5.1) mmol/L Chloride 106 (98-107) mmol/L Carbon Dioxide 21 L (22-32) mmol/L BUN 9 (7-17) mg/dL Creatinine 0.63 (0.52-1.04) mg/dL Estimated GFR > 60 (>60) mL/min BUN/Creatinine Ratio 14.3 (6-22) Glucose 117 H (70-99) mg/dL Calcium 9.3 (8.4-10.2) mg/dL Total Bilirubin 0.6 (0.2-1.3) mg/dL AST 19 (14-36) IU/L ALT 15 (<35) IU/L Alkaline Phosphatase 65 (38-126) U/L Total Protein 8.3 H (6.3-8.2) g/dL Albumin 4.8 (3.5-5.0) g/dL Globulin 3.5 (1.7-4.1) g/dL Albumin/Globulin Ratio 1.4 (1.0-2.8) Lipase 35 (23-300) U/L Urine RBC 0-1/hpf (0-5/HPF) Urine WBC 0-1/hpf (0-5/HPF) Ur Squamous Epith Cells 0-1 /hpf (0-5/HPF) Urine Bacteria Occasional (0-1) (None) Vol Urine Centrifuged 10ml (spun) Point of care testing: Point of Care Testing Test Results Negative Urine Dip Bedside Urine Glucose Negative Bedside Urine Bilirubin - Negative Bedside Urine Ketone - Negative Urine Specific [place] 1.010 Bedside Urine Occult Blood + Bedside Urine pH 8.0 Bedside Urine Protein +/- 15 Bedside Urine Urobilinogen - Negative Bedside Urine Nitrite - Negative Bedside Urine Leukocytes - Negative Esterase Imaging Data CT scan - abdomen/pelvis: Radiologist's Impression: IMPRESSION: No nephrolithiasis or hydronephrosis. Adnexal 5.6 cm cystic lesion. Recommend further evaluation with pelvic ultrasound. MDM Narrative Medical decision making narrative: Patient presented with symptoms typical of renal colic but her CT scan does not reveal kidney stone or hydronephrosis. Rather a left adnexal cyst. Plan is for ultrasound which is pending. Patient has obtain relief from pain medication. Patient care signed out to Dr. Gray with the change of shift with pelvic ultrasound pending. <Kian Gray MD - Last Filed: 08/27/25 02:46> Lab Data Labs: Lab Results 08/26/25 08/26/25 Range/Units 20:15 20:28 WBC 10.2 (4.5-11.0) X10^3/uL RBC 4.74 (4.0-5.2) X10^6/uL Hgb 13.9 (12.0-16.0) g/dL Hct 40.7 (36-46) % MCV 85.9 (80-100) fL MCH 29.3 (26-34) PG MCHC 34.2 (30-36) % RDW 12.6 (11.6-14.8) % Plt Count 345 (150-400) X10^3/uL Neut % (Auto) 79.2 H (50-75) % Lymph % (Auto) 11.3 L (25-40) % [place] % (Auto) 7.4 (3-14) % Eos % (Auto) 1.2 L (2-4) % Baso % (Auto) 0.9 (0-2) % Neut # (Auto) 8000 H (1305-8839) /uL Lymph # (Auto) 1200 (6519-6149) /uL [place] # (Auto) 800 (0-900) /uL Eos # (Auto) 100 (0-450) /uL Baso # (Auto) 100 (0-100) /uL Sodium 137 (137-145) mmol/L Potassium 4.0 (3.4-5.1) mmol/L Chloride 106 (98-107) mmol/L Carbon Dioxide 21 L (22-32) mmol/L BUN 9 (7-17) mg/dL Creatinine 0.63 (0.52-1.04) mg/dL Estimated GFR > 60 (>60) mL/min BUN/Creatinine Ratio 14.3 (6-22) Glucose 117 H (70-99) mg/dL Calcium 9.3 (8.4-10.2) mg/dL Total Bilirubin 0.6 (0.2-1.3) mg/dL AST 19 (14-36) IU/L ALT 15 (<35) IU/L Alkaline Phosphatase 65 (38-126) U/L Total Protein 8.3 H (6.3-8.2) g/dL Albumin 4.8 (3.5-5.0) g/dL Globulin 3.5 (1.7-4.1) g/dL Albumin/Globulin Ratio 1.4 (1.0-2.8) Lipase 35 (23-300) U/L Urine RBC 0-1/hpf (0-5/HPF) Urine WBC 0-1/hpf (0-5/HPF) Ur Squamous Epith Cells 0-1 /hpf (0-5/HPF) Urine Bacteria Occasional (0-1) (None) Vol Urine Centrifuged 10ml (spun) Point of care testing: Point of Care Testing Test Results Negative Urine Dip Bedside Urine Glucose Negative Bedside Urine Bilirubin - Negative Bedside Urine Ketone - Negative Urine Specific [place] 1.010 Bedside Urine Occult Blood + Bedside Urine pH 8.0 Bedside Urine Protein +/- 15 Bedside Urine Urobilinogen - Negative Bedside Urine Nitrite - Negative Bedside Urine Leukocytes - Negative Esterase Imaging Data Pelvic ultrasound: Radiologist's Impression: [address] [address] Ultrasound Report Signed Patient: Leandra Bucio MR#: [id number] : 1980 Acct:[id number] Age/Sex: 44 / F Date of Service: 08/26/25 Loc: ED Accession Number: [id number] Procedure: US pelvic limited Ordering Provider: Constantin Jones MD PROCEDURE: US PELVIC LIMITED INDICATIONS: Left adnexal mass TECHNIQUE: Real-time transabdominal scanning was performed of the pelvic organs, with image documentation. COMPARISON: [facility], CT, CT ABDOMEN PELVIS WO CON, 08/26/2025, 21:41. FINDINGS: Uterus: Post hysterectomy. Ovaries: The right ovary is not visualized. The left ovary measures 6.4 x 4.4 x 7 cm, with a calculated ovarian volume of 102 cc. Left adnexal 5.5 x 6.1 x 4.4 cm simple cyst which corresponds to the findings on CT. There are arterial and venous faint waveforms to the left adnexum. Less than 12 follicles in left ovary. No adnexal masses are seen. Other: Small volume adjacent free fluid. IMPRESSION: 1. Faint arterial and venous waveforms to left adnexum, which may represent symptoms left ovarian torsion detorsion. Consider gynecological consultation. 2. Left adnexal 6.1 cm simple cyst. Communication: The above findings were discussed with the ordering clinician, Dr. Gray, by Dr. Shelton via telephone on 08/27/2025 at 12:11 pm [facility]. We strive to produce accurate, complete, and clear reports of imaging services. To assist us in improving patient care, this report was composed using standard report templates and voice recognition software. Therefore, it may contain abnormal punctuation, insertions and/or omissions. Occasional wrong-word or sound-alike substitutions may occur. Though we review the report and make efforts to correct it, we do recommend that the report be read carefully in proper context to recognize any text inaccuracies. Dictated by: Eric Shelton M.D. on 08/27/2025 at 0:06 Approved by: Eric Shelton M.D. on 08/27/2025 at 0:13 CT scan - abdomen/pelvis: Radiologist's Impression: [address] [address] [address] Scan Report Signed Patient: Leandra Bucio MR#: [id number] : 1980 Acct:[id number] Age/Sex: 44 / F Date of Service: 08/26/25 Loc: ED Accession Number: [id number] Procedure: CT abdomen pelvis wo con Ordering Provider: Constantin Jones MD PROCEDURE: CT ABDOMEN PELVIS WO CON INDICATIONS: Left renal colic with hematuria TECHNIQUE: CT of the abdomen and pelvis was obtained without intravenous contrast. Coronal and sagittal reformats were performed. For radiation dose reduction, the following was used: automated exposure control, adjustment of mA and/or kV according to patient size. COMPARISON: None. FINDINGS: Image quality: Diagnostic. Lower Chest: No significant findings. ABDOMEN: Liver: No contour-deforming mass. Gallbladder: No radiopaque gallstones or wall thickening. Biliary ducts: No biliary dilation. Pancreas: No ductal dilation. Spleen: Size is within normal limits. Adrenal Glands: No adrenal nodules. Kidneys and Ureters: No hydronephrosis. No contour-deforming mass. Stomach and Bowel: Normal colonic caliber, without significant wall thickening. Normal appendix. Peritoneum: No abnormal intraperitoneal fluid. No free air. Ventral Wall: No significant hernia. Abdominal Nodes: No retroperitoneal or mesenteric adenopathy by size criteria. Vessels: Aorta and inferior vena cava are normal in size. PELVIS: Pelvic Organs: Adnexal 5.6 cm cystic lesion. Bladder: Unremarkable. Pelvic Nodes: No enlarged lymph nodes. Miscellaneous: No inguinal hernias are seen. Bones: No aggressive osseous abnormality. IMPRESSION: No nephrolithiasis or hydronephrosis. Adnexal 5.6 cm cystic lesion. Recommend further evaluation with pelvic ultrasound. Dictated by: Eric Shelton M.D. on 08/26/2025 at 22:32 Approved by: Eric Shelton M.D. on 08/26/2025 at 22:36 MDM Narrative Medical decision making narrative: Patient presented with symptoms typical of renal colic but her CT scan does not reveal kidney stone or hydronephrosis. Rather a left adnexal cyst. Plan is for ultrasound which is pending. Patient has obtain relief from pain medication. Patient care signed out to Dr. Gray with the change of shift with pelvic ultrasound pending. 08/26/25, 2330, Isaac. 44-year-old female with left sided flank area discomfort, hCG negative, urine dip positive for blood, CT abdomen and pelvis scanning did not confirm any ureteral or kidney stone but did show left sided ovarian cyst. Ultrasound pelvis ordered and still to be performed. Assumed care. Patient having additional left-sided abdominopelvic discomfort, IV Dilaudid given. CT abdomen and pelvis. IMPRESSION: No nephrolithiasis or hydronephrosis. Adnexal 5.6 cm cystic lesion. Recommend further evaluation with pelvic ultrasound. See radiology report. sheet metal technician verbally relays concern about 6 cm sized left ovary with faint arterial flow, slight free fluid. Await radiologist's review/report. Keep NPO. Patient informed, having more pain. IV Dilaudid dose ordered. Await Radiology reading. Ultrasound pelvis radiology report. IMPRESSION: 1. Faint arterial and venous waveforms to left adnexum, which may represent symptoms left ovarian torsion detorsion. Consider gynecological consultation.2. Left adnexal 6.1 cm simple cyst. See radiology report. Case discussed with Gynecology Dr. 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 Patient agreeable to this plan. Given oral dose hydrocodone/APAP, with home pack hydrocodone/APAP dispensed. Discharged home with . Contact information given for gynecology office. Return precautions discussed. Discharge Plan Departure Patient Disposition: Home Clinical Impression: Left-sided pelvic pain, Cyst of left ovary Activity Restrictions/Additional Instructions: Left-sided flank and abdominal discomfort, test negative, CT did not show any kidney stones or stones in the ureter. On CT scanning there was left-sided ovary. Ultrasound of the pelvis was performed, showed poor but present blood flow to the left ovary, this can be concerning for something called torsion and detorsion, which might arise from intermittent loss of blood supply to that ovary. At risk for complete torsion and loss of ovary, likely will need surgery. Case was discussed with Gynecology on[place]call [place], who wanted to see you in the morning in clinic, possible surgery scheduled tomorrow. Return if there is increasing pain. Pain medication given in the emergency department, with home pack, and also medication home pack to control nausea to use if needed. Call the office of Dr. Santizo gynecology if you have not heard from them by 9-10 in the morning. Return to this emergency department but if there is increasing pain, or any concerns prior. Prescriptions: No Action methocarbamol 500 mg tablet 250 - 500 mg PO QD-TID PRN (Reason: Muscle Spasm) nortriptyline 25 mg capsule 25 mg PO BEDTIME propranolol 20 mg tablet 10 mg PO BID PRN (Reason: anxiety) Qty: 30 5RF escitalopram oxalate 10 mg tablet 10 mg PO .morning Qty: 90 1RF progesterone micronized 100 mg capsule 100 mg PO BEDTIME Qty: 90 3RF tramadol 50 mg tablet 50 mg PO BID PRN (Reason: pain) Qty: 60 2RF oxycodone 5 mg tablet 5 mg PO Q6H PRN (Reason: pain) Qty: 10 0RF sennosides [senna] 8.6 mg tablet 8.6 mg PO BEDTIME PRN (Reason: constipation) Qty: 10 0RF Referrals: Jennie Sweet DO [Primary Care Provider, Medical] Stand Alone Forms: Patient Portal/API
--- NOTE | 2025-08-26 21:34 | DI.CT.S_ITS ---
PROCEDURE: CT ABDOMEN PELVIS WO CON INDICATIONS: Left renal colic with hematuria TECHNIQUE: CT of the abdomen and pelvis was obtained without intravenous contrast. Coronal and sagittal reformats were performed. For radiation dose reduction, the following was used: automated exposure control, adjustment of mA and/or kV according to patient size. COMPARISON: None. FINDINGS: Image quality: Diagnostic. Lower Chest: No significant findings. ABDOMEN: Liver: No contour-deforming mass. Gallbladder: No radiopaque gallstones or wall thickening. Biliary ducts: No biliary dilation. Pancreas: No ductal dilation. Spleen: Size is within normal limits. Adrenal Glands: No adrenal nodules. Kidneys and Ureters: No hydronephrosis. No contour-deforming mass. Stomach and Bowel: Normal colonic caliber, without significant wall thickening. Normal appendix. Peritoneum: No abnormal intraperitoneal fluid. No free air. Ventral Wall: No significant hernia. Abdominal Nodes: No retroperitoneal or mesenteric adenopathy by size criteria. Vessels: Aorta and inferior vena cava are normal in size. PELVIS: Pelvic Organs: Adnexal 5.6 cm cystic lesion. Bladder: Unremarkable. Pelvic Nodes: No enlarged lymph nodes. Miscellaneous: No inguinal hernias are seen. Bones: No aggressive osseous abnormality. IMPRESSION: No nephrolithiasis or hydronephrosis. Adnexal 5.6 cm cystic lesion. Recommend further evaluation with pelvic ultrasound. Dictated by: Eric Shelton M.D. on 08/26/2025 at 22:32 Approved by: Eric Shelton M.D. on 08/26/2025 at 22:36
[2025-08-26] MEDS: SODIUM CHLORIDE 0.9% 1,000 ML 150 ML IV (21:47)
[2025-08-26] MEDS: KETOROLAC 30 MG/ML VIAL IV (21:48)
[2025-08-26] MEDS: TAMSULOSIN 0.4 MG CAPSULE PO (21:49)
--- NOTE | 2025-08-26 22:59 | DI.US.S_ITS ---
PROCEDURE: US PELVIC LIMITED INDICATIONS: Left adnexal mass TECHNIQUE: Real-time transabdominal scanning was performed of the pelvic organs, with image documentation. COMPARISON: [facility], CT, CT ABDOMEN PELVIS WO CON, 08/26/2025, 21:41. FINDINGS: Uterus: Post hysterectomy. Ovaries: The right ovary is not visualized. The left ovary measures 6.4 x 4.4 x 7 cm, with a calculated ovarian volume of 102 cc. Left adnexal 5.5 x 6.1 x 4.4 cm simple cyst which corresponds to the findings on CT. There are arterial and venous faint waveforms to the left adnexum. Less than 12 follicles in left ovary. No adnexal masses are seen. Other: Small volume adjacent free fluid. IMPRESSION: 1. Faint arterial and venous waveforms to left adnexum, which may represent symptoms left ovarian torsion detorsion. Consider gynecological consultation. 2. Left adnexal 6.1 cm simple cyst. Communication: The above findings were discussed with the ordering clinician, Dr. Gray, by Dr. Shelton via telephone on 08/27/2025 at 12:11 pm [facility] [place]. We strive to produce accurate, complete, and clear reports of imaging services. To assist us in improving patient care, this report was composed using standard report templates and voice recognition software. Therefore, it may contain abnormal punctuation, insertions and/or omissions. Occasional wrong-word or sound-alike substitutions may occur. Though we review the report and make efforts to correct it, we do recommend that the report be read carefully in proper context to recognize any text inaccuracies. Dictated by: Eric Shelton M.D. on 08/27/2025 at 0:06 Approved by: Eric Shelton M.D. on 08/27/2025 at 0:13
[2025-08-27] VITALS: BP 126/60; PULSE 112; RESP 16; O2SAT 97
[2025-08-27 00:30] VITALS: BP 124/65; PULSE 94; RESP 14; O2SAT 98
[2025-08-27] MEDS: ONDANSETRON 4 MG ODT PREPACK 1 BOTTLE MISC (00:48)
== END 2025-08-27 01:00 | disposition home or self-care (01) ==
PROVIDERS: Emergency Medicine; Emergency Provider Emergency Medicine; PCP Family Medicine
DX: R10.22 Pelvic and perineal pain left side (principal); N83.202 Unspecified ovarian cyst, left side
CPT/HCPCS: 36415; 74176; 76830; 76857; 80053; 81003; 81015; 81025; 83690; 85025; 87086; 96361; 96374; 96375; 96376; 99284; J1171; J1885; J2405; J7030

== ENCOUNTER 2025-08-27 10:41 | Day surgery (SDC) | payer MEDICARE, MEDICAID, SELFPAY ==
[2024-01-25 15:53] VITALS: BMI 27.4
[2025-08-27] VITALS (9 sets, daily range): BP systolic 113–125; BP diastolic 57–69; PULSE 79–89; RESP 14–20; TEMP 36.3–36.9; O2SAT 97–98; BMI 27.4
--- NOTE | 2025-08-27 | PATH_ITS ---
[facility] Accession Number: [id number] No. of containers..02 Tissue . 01 Material submitted: . PART A: ovary - LEFT OVARY AND CYST PART B: peritoneum - PERITONEAL BIOPSY . 01 Clinical history: . B: R/O ENDOMETRIOSIS . 01 Diagnosis: A. LEFT OVARY AND CYST, LEFT OOPHORECTOMY: Ovary with hemorrhagic corpus luteum cyst and vascular congestion with hemorrhage, compatible with clinical impression of torsion. Negative for malignancy. . B. PERITONEUM, BIOPSY: Fibromembranous tissue with hemosiderin-laden macrophages, see comment. Negative for malignancy. MRV 09/08/2025 1108 Local . 01 Comment: The clinical impression of endometriosis is noted. While abundant hemosiderin-laden macrophages are identified within the peritoneal specimens, the presence of these alone is not sufficient for a diagnosis of endometriosis. Diagnostic features of endometrial glands and/or endometrial stroma are not identified; multiple levels are examined through the entire tissue block. Additionally, immunohistochemistry for CD10 and ER is performed on block B1, and both are negative for endometrial glandular and stromal elements. . * This test was developed and the performance characteristics were validated by [employer]. It has not been cleared or approved by the [place].S. Food and Drug Administration. . 01 Electronically signed: . Araceli Muniz DO, Pathologist NPI- [id number] . 01 Gross description: . A. Received in formalin labeled with two patient identifiers and left ovary and cyst, and consists of a 3.8 x 2.0 x 1.5 cm (10 grams) slightly enlarged ovary with a 3.0 x 2.5 x 2.0 cm, collapsed and ruptured ovarian cyst. The external surface of the ovary and cyst is marshall-purple, smooth, glistening, and otherwise unremarkable. The serosal surface is inked blue. The specimen is serially sectioned to show a unilocular, smooth-walled cyst that has a cyst wall that is diffusely hemorrhagic and ranges from 0.1 to 0.3 cm in thickness. The inner lining of the cyst is smooth, mottled, with areas of laminated hemorrhage. The adjacent ovarian parenchyma is marshall-vital, edematous, with multiple simple serous fluid-filled cysts ranging from 0.1 to 0.5 cm in greatest dimension. Gas Fitter Helper sections are submitted as follows: A1-A2: Ovary to include adjacent peripheral cyst. A3: Gas Fitter Helper sections of cyst. A4: Gas Fitter Helper sections of ovary. B. Received in formalin labeled with two patient identifiers and peritoneal biopsy, rule out endometriosis, and consists of a 1.1 x 0.6 x 0.3 cm aggregate of white, fibrous tissue admixed with focal areas of hemorrhage. The specimen is entirely submitted in [facility] B1. ([id number]) /LOPEZ 08/30/2025 [facility]5 Local . 01 Pathologist provided ICD-10: N83.512 . 01 CPT . 146948, 135236 Specimen Comment: A courtesy copy of this report has been sent to [facility] Performed at: [address] [facility], [place], [place] [id number] MD Vince Raza MD Phone: [phone]
[2025-08-27] MEDS: ACETAMINOPHEN IV 1,000 MG/100 ML VIAL 400 MG IV (10:48)
[2025-08-27] MEDS: LACTATED RINGERS 1,000 ML 42 ML IV (11:40)
[2025-08-27] MEDS: SCOPOLAMINE 1 PATCH TOP (11:48)
[2025-08-27] MEDS: APREPITANT 40 MG CAPSULE PO (11:48)
--- NOTE | 2025-08-27 13:23 | PM.PREOP ---
Pre-operative Note Interval Note History & Physical reviewed/Exam performed by Physician: Yes Changes to H&P: No ASA Class (for procedural sedation): II
--- NOTE | 2025-08-27 14:21 | SUR.OPER ---
Addendum entered by Adri Burk RN 08/27/25 14:35: Lithotomy on pink pads on padded OR bed, head on pillow, arms padded and tucked. Legs secured in padded yellow fins stirrups. Final position approved by surgeon, all pressure points padded and protected. Original Note: Lithotomy on padded OR bed, head on pillow, arms secured on padded arm boards at <90 degrees abduction. Legs secured in padded yellow fins stirrups. Final position approved by surgeon. All pressure points padded and protected
[2025-08-27] MEDS: BUPivacaine 0.25% (PF) 10 ML VIAL 30 ML INJ (14:33)
--- NOTE | 2025-08-27 15:30 | PM.OP.1 ---
Operative Date/Time/Diagnoses Date of procedure: 08/27/25 Time of procedure: 15:30 Pre-op diagnosis: symptomatic L ovarian cyst, suspected torsion Post-op diagnosis: same Procedure & Clinicians Procedure: diagnostic laparoscopy, L oophorectomy, peritoneal excisional biopsy Same procedure(s) as scheduled: Yes Indications: symptomatic L ovarian cyst, suspected intermittent torsion Surgeon: Mary Santizo Assisted?: Yes Elevator Constructor Hydraulic: Jose Donnelly Anesthesia Type: General Operative Notes Findings: normal R ovary, IP ligament engorged L IP ligament, torsion of L IP ligament (x1), enlarged hemorrhagic vs simple L ovarian cyst, scant visible ovarian stroma R anterior peritoneal implant, suspected endometriosis L sidewall peritoneal implant, suspected endometriosis Specimen(s): other (L ovary, excisional peritoneal biopsy x2) Applied: none Estimated Blood Loss (mL): 5 Blood products transfused: none Procedure in detail: The patient was taken to the operating room, placed on the operating table in the supine position and intubated with ETT.? The patient was then placed in the lithotomy position with her legs in Brendan stirrups.? The patient was then examined under anesthesia with the above findings, then prepped and draped in a sterile fashion.? Patient was straight catheterized for urine.? Time out was performed. The inferior umbilical plate was superficially infiltrated with 5cc 0.25% bupivicaine for local analgesia. A 1cm incision was made infraumbilically. The subcutaneous tissue was displaced using S-retractors and fascia was visualized. Fascia grasped with misael x2, sharply incised with metzenbaum scissors with successful uncomplicated abdominal entry. Fascial stay sutures were placed x2 using 0-vicryl on UR6 needle followed by placement of Pickard laparoscopic port. Abdomen was insufflated to 15mmHg.? Two lateral 5-mm ports were placed in a similar manner under direct visualization. Abdominal survey completed with findings as noted above. Using the powerseal the L IP ligament was clamped, ligated and cut with amputation of the L ovary and adherent intact cyst. The laparoscope was removed and replaced via the R lateral port. The endocatch bag was introduced via the Pickard under direct visualization. The ovary and cyst were placed en bloc within the endocatch bag using the atraumatic grasper. The endocatch bag was closed and then brought to the level of the umbilicus. Insufflation was paused and the Pickard port was removed . The suction typesetter apprentice was used for suction of simple appearing cyst fluid within the bag after which the specimen and bag were removed intact and passed off the field for permanent study. Pickard port replaced and insufflation resumed. Attention was then turned to the aforementioned two areas of peritoneal inclusions visually consistent with endometriotic implants. These areas were carefully undermined using the monopolar scissors in tandem with maryland graspers. Both areas excised and removed via the lateral port and passed off the field for permanent study. All wound beds inspected and noted to be hemostatic. Abdominal insufflation released and lateral ports removed under direct visualization. The infraumbilical fascial incision was closed under direct visualization using the previous placed stay sutures and an additional figure of 8 stitch using 0-vicryl. The skin of all incisions was reapproximated using 4-0 monocryl followed by application of dermabond. All counts were correct x2.? The pt tolerated the procedure well and without complication. Patient transferred to PACU in stable condition Complications: none Post-operative Condition: stable Disposition: PACU Plan for aftercare: anticipate dc to home pending routine postop recovery, routine outpatient f/u in office 2 wks
== END 2025-08-27 17:00 | disposition home or self-care (01) ==
PROVIDERS: PCP Family Medicine; Referring Provider Obstetrics & Gynecology; Visit Provider Obstetrics & Gynecology
PROC: (CPT 58661; principal; 2025-08-27 13:15)
DX: N83.12 Corpus luteum cyst of left ovary (principal); N83.511 Torsion of right ovary and ovarian pedicle
CPT/HCPCS: 58661; 58662; 82962; J0131; J1100; J1171; J1885; J2250; J2405; J2704; J3010; J3490; J7120; J8501